=== PATIENT | female | born 1935 | race Caucasian/White ===

== ENCOUNTER 2016-09-15 15:40 | Emergency (ER) | payer MEDICARE, OTHER ==
[2016-09-15 15:58] VITALS: BP 162/74
[2016-09-15] MEDS ORDERED: hydrOXYzine HCl 25 MG Tab PO ONE (16:33)
--- NOTE | 2016-09-15 17:03 | EDM.PDOC ---
ED HPI GENERAL MEDICAL PROBLEM - General Chief Complaint: General Stated Complaint: DIZZY/SHAKY Time Seen by Provider: 09/15/16 15:51 Source of Information: Reports: Patient History Limitations: Reports: No Limitations - History of Present Illness INITIAL COMMENTS - FREE TEXT/NARRATIVE: 81-year-old female with a chief complaint of anxiety. She has a history of anxiety. She's been on ciprofloxacin for about 3 days for urinary infection and is feeling increasingly anxious. She states that she just feels very jittery and is having trouble sleeping. She wonders if it could be related to the medication. She states there is no other provoking factors. She still has some urgency and frequency but overall feels like she is improved. No dysuria or hematuria or abdominal pain or vomiting or fever. She is had about 3 days of antibiotics. States that she's had anxiety before, was given something in the emergency department which helped. She is not currently taking anything for anxiety. She doesn't know what medication she has at home. She hasn't seen her primary provider for these symptoms. - Related Data Allergies Allergy/AdvReac Type Severity Reaction Status Date / Time No Known Allergies Allergy Verified 09/15/16 15:55 Home Meds: Home Meds ALPRAZolam [Alprazolam] 0.25 mg PO BID PRN #6 tablet 11/29/15 [Rx] Enalapril Maleate 10 mg PO DAILY 01/08/16 [History] Levothyroxine [Synthroid] 50 mcg PO DAILY 01/08/16 [History] Simvastatin 40 mg PO DAILY 01/08/16 [History] Cephalexin 250 mg PO QID #20 capsule 09/15/16 [Rx] Ciprofloxacin [Ciprofloxacin HCl] 500 mg PO BID 09/15/16 [History] hydrOXYzine HCl [Atarax] 25 mg PO BEDTIME PRN #10 tablet 09/15/16 [Rx] Past Medical History HEENT History: Reports: Cataract Cardiovascular History: Reports: High Cholesterol, Hypertension Psychiatric History: Reports: Anxiety Endocrine/Metabolic History: Reports: Hypothyroidism - Past Surgical History Musculoskeletal Surgical History: Reports: Arthroscopic Knee, Shoulder Surgery Social & Family History - Tobacco Use Smoking Status *Q: Never Smoker Second Hand Smoke Exposure: No - Caffeine Use Caffeine Use: Reports: Coffee - Alcohol Use Days Per Week of Alcohol Use: 0 - Recreational Drug Use Recreational Drug Use: No ED ROS GENERAL - Review of Systems Review Of Systems: See Below Constitutional: Denies: Fever, Chills, Weakness HEENT: Reports: No Symptoms Respiratory: Denies: Shortness of Breath, Cough Cardiovascular: Denies: Chest Pain Endocrine: Reports: No Symptoms GI/Abdominal: Denies: Abdominal Pain, Nausea : Reports: Frequency. Denies: Dysuria Neurological: Reports: Dizziness Psychiatric: Reports: Anxiety ED EXAM, GENERAL - Physical Exam Exam: See Below Exam Limited By: No Limitations General Appearance: Alert, WD/WN, No Apparent Distress Eye Exam: Bilateral Eye: Normal Inspection Ears: Normal External Exam Nose: Normal Inspection Throat/Mouth: Normal Inspection, Normal Voice, No Airway Compromise Head: Atraumatic, Normocephalic Neck: Normal Inspection, Supple, Non-Tender, Full Range of Motion Respiratory/Chest: No Respiratory Distress, Lungs Clear, Normal Breath Sounds Cardiovascular: Regular Rate, Rhythm, No Murmur GI/Abdominal: Soft, Non-Tender, No Distention Back Exam: Normal Inspection. No: CVA Tenderness (L), CVA Tenderness (R) Extremities: Normal Inspection Neurological: Alert, Oriented, CN II-XII Intact, Normal Cognition, No Motor/ Sensory Deficits Psychiatric: Normal Affect, Normal Mood Skin Exam: Warm, Dry, Intact, Normal Color, No Rash Course - Vital Signs Last Recorded V/S: Last Vital Signs Temp 36.6 C 09/15/16 15:50 Pulse 90 09/15/16 15:50 Resp 18 09/15/16 15:50 BP 162/74 H 09/15/16 15:50 Pulse Ox 97 09/15/16 15:50 - Orders/Labs/Meds Labs: Laboratory Tests 09/15/16 Range/Units 17:00 Urine Color Yellow (Yellow) Urine Appearance Clear (Clear) Urine pH 6.5 (5.0-8.0) Ur Specific Dorsey > or = 1.030 (1.005-1.030) Urine Protein Negative (Negative) Urine Glucose (UA) Negative (Negative) Urine Ketones Trace H (Negative) Urine Occult Blood 2+ H (Negative) Urine Nitrite Negative (Negative) Urine Bilirubin Negative (Negative) Urine Urobilinogen 0.2 (0.2-1.0) Ur Leukocyte Esterase Negative (Negative) Urine RBC 10-20 H (0-5) /hpf Urine WBC 5-10 H (0-5) /hpf Ur Epithelial Cells 10-20 H (0-5) /hpf Urine Bacteria Rare (FEW) /hpf Urine Mucus Not seen (FEW) /hpf Meds: Medications Discontinued Medications Generic Name Dose Route Start Last Admin Trade Name Freq PRN Reason Stop Dose Admin Hydroxyzine HCl 25 mg 09/15/16 16:33 09/15/16 16:49 Atarax PO 09/15/16 16:34 25 mg ONETIME ONE Administration - Re-Assessments/Exams Free Text/Narrative Re-Assessment/Exam: 09/15/16 17:54 Feeling better after 1 tab hydroxyzine. Anxiety and agitation are listed side effects of cipro. Not clear if this exacerbation of anxiety is caused by this medication but given that it is a known possible side effect will change to cephalexin. Departure - Departure Time of Disposition: 17:54 Disposition: Home, Self-Care 01 Clinical Impression: Anxiety - Discharge Information Prescriptions: Cephalexin 250 mg PO QID #20 capsule hydrOXYzine HCl [Atarax] 25 mg PO BEDTIME PRN #10 tablet PRN Reason: anxiety or insomnia Referrals: Nitesh Menchaca Jr, MD [Primary Care Provider] - Forms: ED Department Discharge Additional Instructions: 1. Follow up with your primary doctor as soon as possible for further care 2. Take cephalexin (antibiotic). Stop taking cipro. Anxiety and agitation are possible side effects of cipro. 3. Return to the ED if you have severe anxiety symptoms or difficulty breathing or any other concerning symptoms
== END 2016-09-15 18:18 | disposition home or self-care (01) ==
LOC: JD.ED 15:40
DX: F41.9 Anxiety disorder, unspecified (principal); I10 Essential (primary) hypertension; E78.00 Pure hypercholesterolemia, unspecified; E03.9 Hypothyroidism, unspecified; Z98.890 Other specified postprocedural states; Z79.899 Other long term (current) drug therapy
CPT/HCPCS: 81001; 99284; A9270; 99283

== ENCOUNTER 2018-10-06 09:28 | Inpatient (IN) | payer MEDICARE, OTHER ==
--- NOTE | 2018-10-06 10:17 | EDM.PDOC ---
ED HPI GENERAL MEDICAL PROBLEM - General Chief Complaint: Upper Extremity Injury/Pain Stated Complaint: RT ARM AND KNEE INJURY Time Seen by Provider: 10/06/18 10:05 Source of Information: Reports: Patient History Limitations: Reports: No Limitations - History of Present Illness INITIAL COMMENTS - FREE TEXT/NARRATIVE: The patient presents with right elbow and left knee pain. She was at the [facility] and they put something new down on the floor and her shoes caught and she fell. She landed on her left knee, right elbow and chin. She had no LOC. She has no neck pain, chest pain, shortness of breath, abdominal pain, nausea or vomiting. She is right handed. She does have some ecchymosis to her right chin with now pain and ecchymosis to the left knee. She is on aspirin daily. Onset: Sudden Duration: Minutes: Location: Reports: Upper Extremity, Right (elbow), Lower Extremity, Left (knee) Quality: Reports: Sharp Severity: Moderate Improves with: Reports: Immobilization Worsens with: Reports: Movement Context: Reports: Trauma (fall) Right Elbow Pain Score (Numeric/FACES): 10 Left Knee Pain Score (Numeric/FACES): 8 - Related Data Allergies Allergy/AdvReac Type Severity Reaction Status Date / Time No Known Allergies Allergy Verified 09/15/16 15:55 Home Meds: Home Meds ALPRAZolam [Alprazolam] 0.25 mg PO BID PRN #6 tablet 11/29/15 [Rx] Enalapril Maleate 10 mg PO DAILY 01/08/16 [History] Levothyroxine [Synthroid] 50 mcg PO DAILY 01/08/16 [History] Simvastatin 40 mg PO DAILY 01/08/16 [History] Ciprofloxacin [Ciprofloxacin HCl] 500 mg PO BID 09/15/16 [History] cephALEXin [Cephalexin] 250 mg PO QID #20 capsule 09/15/16 [Rx] hydrOXYzine HCl [Atarax] 25 mg PO BEDTIME PRN #10 tablet 09/15/16 [Rx] Past Medical History HEENT History: Reports: Cataract Cardiovascular History: Reports: High Cholesterol, Hypertension Psychiatric History: Reports: Anxiety Endocrine/Metabolic History: Reports: Hypothyroidism - Past Surgical History Musculoskeletal Surgical History: Reports: Arthroscopic Knee, Shoulder Surgery Social & Family History - Tobacco Use Smoking Status *Q: Never Smoker - Caffeine Use Caffeine Use: Reports: Coffee - Recreational Drug Use Recreational Drug Use: No Review of Systems - Review of Systems Review Of Systems: See Below Constitutional: Reports: No Symptoms Eyes: Reports: No Symptoms Ears: Reports: No Symptoms Nose: Reports: No Symptoms Mouth/Throat: Reports: Other (Ecchymosis to the right chin) Respiratory: Reports: No Symptoms Cardiovascular: Reports: No Symptoms GI/Abdominal: Reports: No Symptoms Genitourinary: Reports: No Symptoms Musculoskeletal: Reports: Other (Right elbow and left knee pain) ED EXAM, GENERAL - Physical Exam Exam: See Below Exam Limited By: No Limitations General Appearance: Alert, No Apparent Distress Ears: Normal External Exam Nose: Normal Inspection Throat/Mouth: Normal Inspection Head: Other (Mild ecchymosis to the right chin with no pain upon palpation and the patient can bite down evenly.) Neck: Normal Inspection, Supple, Non-Tender Respiratory/Chest: No Respiratory Distress, Lungs Clear, Normal Breath Sounds Cardiovascular: Regular Rate, Rhythm, No Edema, No Murmur GI/Abdominal: Soft, Non-Tender, No Organomegaly, No Mass Back Exam: Normal Inspection Extremities: Other (Pain upon palpation to the right elbow with no edema noted. Good sensation and pulses distally. Left knee has some ecchymosis and mild edema to the patella. Good sensation and pulses distally.) ED TRAUMA EXTREMITY PROCEDURES - Splinting Right Upper Extremity Splint Site: Right elbow Pre-Procedure NV Status: Normal Post-Procedure NV Status: Normal Splint Material: Fiberglass Splint Design: Gutter, Sling Applied & Form Fitted By: Provider Provider Post-Splint Application NV Check: NV Status Normal, Good Position Complications: No Course - Vital Signs Last Recorded V/S: Last Vital Signs Temp 97.4 F 10/06/18 09:59 Pulse 103 H 10/06/18 09:59 Resp 16 10/06/18 09:59 BP 148/83 H 10/06/18 09:59 Pulse Ox 98 10/06/18 09:59 - Orders/Labs/Meds Orders: Active Orders 24 hr Category Date Time Status Durable Medical Equipment for Discharge [DME for Oth 10/06/18 11:31 Ordered Discharge] [COMM] Stat Durable Medical Equipment for Discharge [DME for Oth 10/06/18 12:19 Ordered Discharge] [COMM] Stat Meds: Medications Discontinued Medications Generic Name Dose Route Start Last Admin Trade Name Nakia PRN Reason Stop Dose Admin Ibuprofen 600 mg 10/06/18 13:55 Motrin PO 10/06/18 13:56 ONETIME ONE - Re-Assessments/Exams Free Text/Narrative Re-Assessment/Exam: 10/06/18 10:16 I have ordered an x-ray of her right elbow and left knee. 10/06/18 14:14 The x-ray of her knee shows degenerative change, joint effusion and patellar fracture. The x-ray of her right elbow shows findings suspicious for slightly impacted radial neck fracture. Joint effusion and other incidental findings. I put a knee immobilizer on her leg and a splint and sling on her arm. I was going to get her a wheel chair however her son, the patient and I are all concerned how she is going to function at home like this. I had Annabelle tonya social sciences lecturer come talk to her and she called [facility] and they had concerns about how she would do with them. I feel she may need to be admitted for observation and get PT. I called Dr Guardado and he agreed to the admission. Departure - Departure Time of Disposition: 14:25 Disposition: Refer to Observation Condition: Fair Clinical Impression: Fall Qualifiers: Encounter type: initial encounter Qualified Code(s): W19.XXXA - Unspecified fall, initial encounter Right radial head fracture Qualifiers: Encounter type: initial encounter Fracture type: closed Fracture alignment: nondisplaced Qualified Code(s): S52.124A - Nondisplaced fracture of head of right radius, initial encounter for closed fracture Left patella fracture Qualifiers: Encounter type: initial encounter Fracture type: closed Fracture morphology: other fracture Qualified Code(s): S82.092A - Other fracture of left patella, initial encounter for closed fracture - Discharge Information Referrals: Nitesh Menchaca Jr, MD [Primary Care Provider] - Forms: ED Department Discharge - My Orders Last 24 Hours: My Active Orders 10/06/18 11:31 Durable Medical Equipment for Discharge [DME for Discharge] [COMM] Stat 10/06/18 12:19 Durable Medical Equipment for Discharge [DME for Discharge] [COMM] Stat - Assessment/Plan Last 24 Hours: My Active Orders 10/06/18 11:31 Durable Medical Equipment for Discharge [DME for Discharge] [COMM] Stat 10/06/18 12:19 Durable Medical Equipment for Discharge [DME for Discharge] [COMM] Stat
--- NOTE | 2018-10-06 11:13 | CR ---
Right elbow: Three views of the right elbow were obtained. Comparison: No previous study. Slight degenerative change is noted within the elbow. Slightly impacted radial neck fracture is suspected. Osteopenia is present. Joint effusion is seen. Impression: 1. Findings suspicious for slightly impacted radial neck fracture. 2. Joint effusion and other incidental findings. Diagnostic code #3
--- NOTE | 2018-10-06 11:34 | CR ---
Left knee: Four views of the left knee were obtained. Comparison: No prior left knee exam. Mild to moderate medial joint space narrowing is seen. Osteophytes are noted off the medial and lateral joint compartments. Fracture is identified within the patella. Joint effusion is seen. Spur noted off the superior patella as well as spur at the insertion of the quadriceps tendon to the patella. Impression: 1. Degenerative change as noted above. 2. Joint effusion. 3. Patellar fracture. Diagnostic code #3
[2018-10-06] MEDS ORDERED: Ibuprofen 600 MG Tab PO ONE (13:55)
--- NOTE | 2018-10-06 15:11 | PCM.HP.2 ---
H&P History of Present Illness - General Date of Service: 10/06/18 Admit Problem/Dx: Admission Diagnosis/Problem Admission Diagnosis/Problem Elbow fracture Source of Information: Patient, Old Records, Provider, RN Notes Reviewed, Significant Other History Limitations: Reports: Physical Impairment - History of Present Illness Initial Comments - Free Text/Narative: This is an 83 yo pleasant elderly white female with past medical hx/o HTN, HLD, Hypothyroidism and Anxiety who comes in for evaluation right elbow and left knee pain [facility] She states she tripped on the floor lost her balance and fell forward. She landed on her left knee and right elbow. Her chin also hit the floor. She denies LOC and no loss of bladder or bowel control. No prodromal symptoms. She further denies any neurological symptoms. Her initial labs in ED were fairly unremarkable. Her knee x-ray report read as joint effusion and patellar fracture. Her elbow x-ray report read as suspicious for slightly impacted radial neck fracture with joint effusion. Patient lives alone and has no support at home. She is coming in primarily for left patellar and right distal radial fractures. Right Elbow Pain Score (Numeric/FACES): 10 Left Knee Pain Score (Numeric/FACES): 8 - Related Data Allergies/Adverse Reactions: Allergies Allergy/AdvReac Type Severity Reaction Status Date / Time No Known Allergies Allergy Verified 09/15/16 15:55 Home Medications: Home Meds Enalapril Maleate 10 mg PO DAILY 01/08/16 [History] Levothyroxine [Synthroid] 50 mcg PO DAILY 01/08/16 [History] Simvastatin 20 mg PO DAILY 01/08/16 [History] Aspirin 81 mg PO DAILY 10/06/18 [History] Baclofen 10 mg PO TID PRN 10/06/18 [History] Calcium Carb & Citrate/Vit D3 [Calcium + D3 ER Tablet] 1 tab PO DAILY 10/06/18 [ History] Chlorthalidone 12.5 mg PO DAILY 10/06/18 [History] Potassium Chloride [Klor-Con 10] 20 meq PO Q48H 10/06/18 [History] Past Medical History HEENT History: Reports: Cataract Cardiovascular History: Reports: High Cholesterol, Hypertension Psychiatric History: Reports: Anxiety Endocrine/Metabolic History: Reports: Hypothyroidism - Past Surgical History Musculoskeletal Surgical History: Reports: Arthroscopic Knee, Shoulder Surgery Social & Family History - Tobacco Use Smoking Status *Q: Never Smoker - Caffeine Use Caffeine Use: Reports: Coffee - Recreational Drug Use Recreational Drug Use: No H&P Review of Systems - Review of Systems: Review Of Systems: ROS reveals no pertinent complaints other than HPI. Exam - Exam Exam: See Below - Vital Signs Vital Signs: Last Vital Signs Temp 36.3 C 10/06/18 09:59 Pulse 103 H 10/06/18 09:59 Resp 16 10/06/18 09:59 BP 148/83 H 10/06/18 09:59 Pulse Ox 98 10/06/18 09:59 Weight: 64.41 kg - Exam General: Alert, Oriented, Cooperative, Mild Distress HEENT: Conjunctiva Clear, EOMI, Hearing Intact, Mucosa Moist & [place], Normal Nasal Septum, Posterior Pharynx Clear, Pupils Equal, Pupils Reactive, TMs Clear , Other (bruise on right chin) Neck: Supple, Trachea Midline Lungs: Clear to Auscultation, Normal Respiratory Effort Cardiovascular: Regular Rate, Regular Rhythm GI/Abdominal Exam: Normal Bowel Sounds, Soft, Non-Tender, No Organomegaly, No Distention, No Abnormal Bruit, No Mass, Guarding (Female) Exam: Deferred Rectal (Female) Exam: Deferred Back Exam: Normal Inspection, Decreased Range of Motion Extremities: Normal Inspection, Normal Range of Motion, Non-Tender, No Pedal Edema, Normal Capillary Refill, Other (sling around right shoulder) Peripheral Pulses: 2+: Posterior Tibial (L), Posterior Tibial (R), Dorsalis Pedis (L), Dorsalis Pedis (R) Skin: Warm, Dry, Intact Neuro Extensive - Mental Status: Oriented x3, Normal Cognition, Memory Intact Neuro Extensive - Motor, Sensory, Reflexes: CN II-XII Intact (limited due to pain with movement on right upper exremity but otherwise grosly intact), Abnormal Gait DTR: 2+: Achilles (L), Achilles (R) Psychiatric: Alert, Normal Affect, Normal Mood - Patient Data Result Diagrams: 10/07/18 04:28 10/07/18 15:02 Problem List Initiated/Reviewed/Updated: Yes Orders Last 24hrs: Active Orders 24 hr Category Date Time Status Patient Status [ADT] Routine ADT 10/06/18 14:26 Active Durable Medical Equipment for Discharge [DME for Oth 10/06/18 11:31 Ordered Discharge] [COMM] Stat Durable Medical Equipment for Discharge [DME for Oth 10/06/18 12:19 Ordered Discharge] [COMM] Stat Assessment/Plan Comment:: Assessment: Acute: Status Post Fall - 2/2 Mechanical fall - She tripped over the carpet and fell forward - PT/OT to assess and eval - Vit D level Right head Fractures - Splint and Sling for conservative treatment - Ortho consult for further eval - PRN pain medications Left Patellar Fracture - Knee immobilizer applied in ED - Ortho consult for further eval Chronic: HTN, HLD, Hypothyroidism and Anxiety Plan: Admit to [facility] Routine AM labs Regular diet Fall precautions Ortho consult: done in ED by Dr. Iglesias DVT/GI prophylaxis RT/OT/PT to asses and treat SW/CM for d/c planning Code status: full Additional orders as above - Mortality Measure Prognosis:: Good
[2018-10-06] MEDS ORDERED: Albuterol/Ipratropium 3.0-0.5 MG/3 ML Neb Soln NEB PRN (15:12)
[2018-10-06] MEDS ORDERED: Polyethylene Glycol 3350 Powder 17 GM Packet PO PRN (15:12)
[2018-10-06] MEDS ORDERED: LORazepam 2 MG/ML SDV IV PRN (15:12)
[2018-10-06] MEDS ORDERED: HYDROmorphone 0.5 MG/0.5 ML Syringe IVPUSH PRN (15:12)
[2018-10-06] MEDS ORDERED: Promethazine 6.25 MG in Sodium Chloride 0.9% 50 ML IV PRN (15:12)
[2018-10-06] MEDS ORDERED: Bisacodyl 5 MG Tab PO PRN (15:12)
[2018-10-06] MEDS ORDERED: Docusate Sodium 100 MG Cap PO PRN (15:12)
[2018-10-06] MEDS ORDERED: Ondansetron 4 MG/2 ML SDV IV PRN (15:12)
[2018-10-06] MEDS ORDERED: Baclofen 10 MG Tab PO PRN (16:00)
[2018-10-06] MEDS ORDERED: POTASSIUM CHLORIDE 20 MEQ PO SCH (18:00)
[2018-10-06] MEDS: Acetaminophen/HYDROcodone 325-5 MG Tab PO PRN (22:28)
[2018-10-07] MEDS: LEVOTHYROXINE 50 MCG PO SCH (06:20)
[2018-10-07] MEDS ORDERED: ENALAPRIL 10 MG PO SCH (09:00)
[2018-10-07] MEDS ORDERED: CALCIUM CARB PO SCH (09:00)
[2018-10-07] MEDS ORDERED: Non-Formulary Medication 1 Each (Potassium Chloride [Klor-Con 10] 10 MEQ) PO SCH (09:00)
[2018-10-07] MEDS ORDERED: SIMVASTATIN 40 MG PO SCH (09:00)
[2018-10-07] MEDS ORDERED: VIT D3 PO SCH (09:00)
[2018-10-07] MEDS ORDERED: POTASSIUM CHLORIDE 20 MEQ PO SCH (09:00)
[2018-10-07] MEDS ORDERED: CITRATE PO SCH (09:00)
[2018-10-07] MEDS: Aspirin 81 MG Tab.EC PO SCH (09:34)
[2018-10-07] MEDS: CHLORTHALIDONE 25 MG PO SCH (09:37)
[2018-10-07] MEDS: Ibuprofen 400 MG Tab PO PRN (09:39)
[2018-10-07] MEDS ORDERED: Magnesium Sulfate/Water 2 GM in Premix Bag 1 BAG IV ONE (11:30)
[2018-10-07] MEDS ORDERED: Potassium Chloride 20 MEQ Tab.ER PO ONE (11:30)
--- NOTE | 2018-10-07 11:49 | PCM.PN ---
- General Info Date of Service: 10/07/18 Admission Dx/Problem (Free Text): Admission Diagnosis/Problem Admission Diagnosis/Problem Elbow fracture Subjective Update: Follow up Functional Status: Reports: Pain Controlled, Tolerating Diet, Urinating. Denies : New Symptoms Pain Score: 4 - Review of Systems General: Denies: Fever, Weakness, Fatigue, Malaise HEENT: Reports: No Symptoms Pulmonary: Denies: Shortness of Breath Cardiovascular: Denies: Chest Pain, Dyspnea on Exertion, Orthopnea, PND, Lightheadedness Gastrointestinal: Reports: No Symptoms Genitourinary: Reports: No Symptoms Musculoskeletal: Reports: Shoulder Pain, Other (knee pain) Skin: Reports: Bruising Neurological: Reports: Difficulty Walking, Weakness, Gait Disturbance. Denies: Confusion, Paresthesia, Tingling, Trouble Speaking Psychiatric: Denies: Depression, Anxiety, Agitation, Cravings, Hallucinations, Suicidal Ideation Systems Review Comment:: No overnight or acute issues. She rested fairly well last night. She has no acute issues. Her knee pain is 4 and her elbow is 6/10 on pain scale. Her Na, K and levels were slightly low. - Patient Data Vitals - Most Recent: Last Vital Signs Temp 36.4 C 10/07/18 04:42 Pulse 79 10/07/18 04:43 Resp 16 10/07/18 04:42 BP 146/71 H 10/07/18 09:38 Pulse Ox 96 10/07/18 04:43 Weight - Most Recent: 64.41 kg I&O - Last 24 Hours: Intake & Output 10/06/18 10/07/18 10/07/18 22:59 06:59 14:59 Intake Total 240 600 Output Total 700 Balance 240 -100 Lab Results Last 24 Hours: Laboratory Results - last 24 hr 10/07/18 10/07/18 Range/Units 04:28 04:28 WBC 7.17 (3.98-10.04) K/mm3 RBC 3.94 L (3.98-5.22) M/mm3 Hgb 11.9 (11.2-15.7) gm/L Hct 34.9 (34.1-44.9) % MCV 88.6 D (79.4-94.8) fl MCH 30.2 (25.6-32.2) pg MCHC 34.1 (32.2-35.5) g/dl RDW Std Deviation 41.9 (36.4-46.3) fL Plt Count 237 D (182-369) K/mm3 MPV 8.9 L (9.4-12.3) fl Neut % (Auto) 70.6 (34.0-71.1) % Lymph % (Auto) 17.3 L (19.3-51.7) % [place] % (Auto) 10.9 (4.7-12.5) % Eos % (Auto) 0.8 (0.7-5.8) Baso % (Auto) 0.1 (0.1-1.2) % Neut # (Auto) 5.06 (1.56-6.13) K/mm3 Lymph # (Auto) 1.24 (1.18-3.74) K/mm3 [place] # (Auto) 0.78 H (0.24-0.36) K/mm3 Eos # (Auto) 0.06 (0.04-0.36) K/mm3 Baso # (Auto) 0.01 (0.01-0.08) K/mm3 Sodium 126 L D (136-145) mEq/L Potassium 2.9 L (3.5-5.1) mEq/L Chloride 90 L D (98-107) mEq/L Carbon Dioxide 29 (21-32) mEq/L Anion Gap 9.9 (5-15) BUN 14 (7-18) mg/dL Creatinine 0.7 (0.55-1.02) mg/dL Est Cr Clr Drug Dosing 44.51 mL/min Estimated GFR (MDRD) > 60 (>60) mL/min BUN/Creatinine Ratio 20.0 H (14-18) Glucose 98 (83-115) mg/dL Calcium 8.8 (8.5-10.1) mg/dL Magnesium 1.7 L (1.8-2.4) mg/dl Med Orders - Current: Current Medications Hydrocodone Bitart/Acetaminophen ([place] 325-5 Mg) 1 tab PO Q4H PRN PRN Reason: Pain (moderate 4-6) Last Admin: 10/06/18 22:28 Dose: 1 tab Albuterol/Ipratropium (Duoneb 3.0-0.5 Mg/3 Ml) 3 ml NEB Q4H PRN PRN Reason: Shortness Of Breath/wheezing Aspirin (Halfprin) 81 mg PO DAILY [facility] Last Admin: 10/07/18 09:34 Dose: 81 mg Baclofen (Lioresal) 10 mg PO TID PRN PRN Reason: Pain Bisacodyl (Dulcolax) 5 mg PO DAILY PRN PRN Reason: Constipation Docusate Sodium (Colace) 100 mg PO BID PRN PRN Reason: Constipation Enalapril Maleate (Vasotec) 10 mg PO DAILY [facility] Last Admin: 10/07/18 09:38 Dose: 10 mg Hydromorphone HCl (Dilaudid) 0.25 mg IVPUSH Q2H PRN PRN Reason: Pain (severe 7-10) Promethazine HCl 6.25 mg/ (Sodium Chloride) 50.25 mls @ 100 mls/hr IV Q6H PRN PRN Reason: Nausea/Vomiting Magnesium Sulfate 2 gm/ Premix 50 mls @ 25 mls/hr IV ONETIME ONE Stop: 10/07/18 13:29 Ibuprofen (Motrin) 400 mg PO Q6H PRN PRN Reason: Pain (mild 1-3) Last Admin: 10/07/18 09:39 Dose: 400 mg Levothyroxine Sodium (Synthroid) 50 mcg PO DAILY@0700 [facility] Last Admin: 10/07/18 06:20 Dose: 50 mcg Lorazepam (Ativan) 0.25 mg IV Q6H PRN PRN Reason: Anxiety Ondansetron HCl (Zofran) 4 mg IV Q6H PRN PRN Reason: Nausea/Vomiting Calcium Carb & Citrate/Vit D3 Tab # Ptom# 0 each PO DAILY [facility] Last Admin: 10/07/18 09:35 Dose: 1 each Chlorthalidone 25 Mg (Tab #Ptom#) 0 each PO DAILY [facility] Last Admin: 10/07/18 09:37 Dose: 1 each Polyethylene Glycol (Miralax) 17 gm PO DAILY PRN PRN Reason: Constipation Potassium Chloride (Klor-Con M20) 20 meq PO Q48H [facility] Last Admin: 10/07/18 09:34 Dose: 20 meq Senna/Docusate Sodium (Senna Plus) 1 tab PO BID PRN PRN Reason: Constipation Simvastatin (Zocor) 20 mg PO DAILY [facility] Last Admin: 10/07/18 09:38 Dose: 20 mg Discontinued Medications Ibuprofen (Motrin) 600 mg PO ONETIME ONE Stop: 10/06/18 13:56 Last Admin: 10/06/18 14:17 Dose: 600 mg Non-Formulary Medication (Potassium Chloride [Klor-Con 10]) 10 meq PO DAILY [facility] Potassium Chloride (Klor-Con M20) 20 meq PO Q48H [facility] Last Admin: 10/06/18 20:05 Dose: Not Given Potassium Chloride (Klor-Con M20) 60 meq PO ONETIME ONE Stop: 10/07/18 11:31 - Exam General: Alert, Oriented, Cooperative HEENT: Pupils Equal, Pupils Reactive, EOMI, Mucous Membr. Moist/[place] Neck: Supple Lungs: Clear to Auscultation, Normal Respiratory Effort Cardiovascular: Regular Rate, Regular Rhythm GI/Abdominal Exam: Normal Bowel Sounds, Soft, Non-Tender, No Organomegaly, No Distention, No Abnormal Bruit, No Mass (Female) Exam: Deferred Back Exam: Normal Inspection, Decreased Range of Motion Extremities: Normal Inspection, Non-Tender, No Pedal Edema, Normal Capillary Refill, Limited Range of Motion Peripheral Pulses: 2+: Posterior Tibial (R), Dorsalis Pedis (L), Dorsalis Pedis (R) Skin: Warm, Dry, Intact, Ecchymosis Neurological: No New Focal Deficit (limited due to pain with movement). No: Normal Gait Psy/Mental Status: Alert, Normal Affect, Normal Mood - Problem List Review Problem List Initiated/Reviewed/Updated: Yes - My Orders Last 24 Hours: My Active Orders 10/06/18 15:12 Height and Weight [RC] 04 Intake and Output [RC] 04,16 Oxygen Therapy [RC] PRN Up With Assistance [RC] ASDIRECTED Up ad Yohana [RC] ASDIRECTED VTE/DVT Education [RC] PER UNIT ROUTINE Vital Signs [RC] Q4HR Consult to Case Management/Director Of Annual Giving [CONS] Routine Consult to Spiritual Care [CONS] Routine OT Evaluation and Treatment [CONS] Routine PT Evaluation and Treatment [CONS] Routine Acetaminophen/HYDROcodone [[place] 325-5 MG] 1 tab PO Q4H PRN Albuterol/Ipratropium [DuoNeb 3.0-0.5 MG/3 ML] 3 ml NEB Q4H PRN Bisacodyl [Dulcolax] 5 mg PO DAILY PRN Docusate Sodium [Colace] 100 mg PO BID PRN Docusate Sodium/Sennosides [Senna Plus] 1 tab PO BID PRN HYDROmorphone [Dilaudid] 0.25 mg IVPUSH Q2H PRN LORazepam [Ativan] 0.25 mg IV Q6H PRN Ondansetron [Zofran] 4 mg IV Q6H PRN Polyethylene Glycol 3350 [MiraLAX] 17 gm PO DAILY PRN Promethazine [Phenergan] 6.25 mg Sodium Chloride 0.9% [Normal Saline] 50 ml IV Q6H 10/06/18 15:13 Antiembolic Devices [RC] BID Sequential Compression Device [OM.PC] Per Unit Routine 10/06/18 15:14 RT Aerosol Therapy [RC] ASDIRECTED 10/06/18 15:22 Resuscitation Status Routine 10/06/18 15:59 Notify Provider Consults [RC] ASDIRECTED Consult to Physician [CONS] Routine 10/06/18 16:00 Baclofen [Lioresal] 10 mg PO TID PRN 10/06/18 21:00 Ibuprofen [Motrin] 400 mg PO Q6H PRN 10/06/18 Dinner Regular Diet [DIET] 10/07/18 07:00 Levothyroxine [Synthroid] 50 mcg PO DAILY@0700 10/07/18 09:00 Aspirin [Halfprin] 81 mg PO DAILY Enalapril [Vasotec] 10 mg PO DAILY Patient's Own Medication [Ptom] 0 each PO DAILY Patient's Own Medication [Ptom] 0 each PO DAILY Potassium Chloride [Klor-Con M20] 20 meq PO Q48H Simvastatin [Zocor] 20 mg PO DAILY 10/07/18 11:30 Magnesium Sulfate/Water [Magnesium Sulfate in Water Premix] 2 gm Premix Bag 1 bag IV ONETIME 10/08/18 05:11 BASIC METABOLIC PANEL,BMP [CHEM] AM CBC WITH AUTO DIFF [HEME] AM MAGNESIUM [CHEM] AM 10/09/18 05:11 BASIC METABOLIC PANEL,BMP [CHEM] AM CBC WITH AUTO DIFF [HEME] AM MAGNESIUM [CHEM] AM 10/10/18 05:11 BASIC METABOLIC PANEL,BMP [CHEM] AM CBC WITH AUTO DIFF [HEME] AM MAGNESIUM [CHEM] AM 10/11/18 05:11 BASIC METABOLIC PANEL,BMP [CHEM] AM CBC WITH AUTO DIFF [HEME] AM MAGNESIUM [CHEM] AM - Plan Plan:: Assessment: Acute: Status Post Fall - 2/2 Mechanical fall - She tripped over the carpet and fell forward - PT/OT to assess and eval - Vit D level Right head Fractures - Splint and Sling for conservative treatment - Dr. Hull saw her this morning - PRN pain medications Left Patellar Fracture - Knee immobilizer applied in ED - Ortho consult for further eval Electrolytes Abnormality * Hyponatremia - Na of 126--> 122 - 2/ thiazide - Thermotabs po TID * Hypokalemia - K of 2.9 - She is chronically low - She has daily K supplement - Add 60 mEq of KCl po x1 * Hypomagnesemia - Mg of 1.7 - Replete and monitor Chronic: HTN, HLD, Hypothyroidism and Anxiety Plan: She is otherwise clinically stable Change to inpatient if she meets criteria; CM to review patient's case Routine AM labs Regular diet Fall precautions Educated patient about pain control and management DVT/GI prophylaxis Continue OT/PT to asses and treat SW/CM for d/c planning Recommend SNF/Rehab placement Code status: full Additional orders as above LOS anticipate > 96hrs pending SNF/Rehab Placement
[2018-10-07] MEDS: Acetaminophen/HYDROcodone 325-5 MG Tab PO PRN (11:52)
[2018-10-07] MEDS ORDERED: Magnesium Oxide 400 MG Tab PO ONE (13:03)
[2018-10-08] MEDS ORDERED: Potassium Chloride 20 MEQ Tab.ER PO ONE ×2 (07:28→22:32)
[2018-10-08] MEDS: LEVOTHYROXINE 50 MCG PO SCH (07:53)
--- NOTE | 2018-10-08 09:23 | PCM.PN ---
- General Info Date of Service: 10/08/18 Admission Dx/Problem (Free Text): Admission Diagnosis/Problem Admission Diagnosis/Problem Elbow fracture Subjective Update: Follow up Functional Status: Reports: Pain Controlled, Tolerating Diet, Ambulating, Urinating. Denies: New Symptoms Pain Score: 3 - Review of Systems General: Denies: Fever, Weakness, Fatigue, Malaise, Chills HEENT: Reports: No Symptoms Pulmonary: Denies: Shortness of Breath, Pleuritic Chest Pain Cardiovascular: Denies: Chest Pain, Dyspnea on Exertion, Orthopnea, Lightheadedness Gastrointestinal: Denies: Abdominal Pain, Nausea, Vomiting Genitourinary: Reports: No Symptoms Musculoskeletal: Reports: Other Skin: Reports: Bruising Neurological: Reports: Difficulty Walking, Weakness, Gait Disturbance. Denies: Confusion Psychiatric: Denies: Depression, Anxiety, Agitation, Cravings, Suicidal Ideation Systems Review Comment:: Had an uneventful night, pain is controlled and no acute or new issues. She has not had a bowel movement. Her electrolytes are much better. - Patient Data Vitals - Most Recent: Last Vital Signs Temp 36.7 C 10/08/18 08:06 Pulse 62 10/08/18 08:06 Resp 16 10/08/18 08:06 BP 148/62 H 10/08/18 08:06 Pulse Ox 95 10/08/18 08:06 Weight - Most Recent: 65.136 kg I&O - Last 24 Hours: Intake & Output 10/07/18 10/08/18 10/08/18 22:59 06:59 14:59 Intake Total 803 600 Output Total 600 Balance 203 600 Lab Results Last 24 Hours: Laboratory Results - last 24 hr 10/07/18 10/08/18 10/08/18 Range/Units 15:02 04:47 04:47 WBC 6.26 (3.98-10.04) K/mm3 RBC 3.84 L (3.98-5.22) M/mm3 Hgb 11.6 (11.2-15.7) gm/L Hct 34.0 L (34.1-44.9) % MCV 88.5 (79.4-94.8) fl MCH 30.2 (25.6-32.2) pg MCHC 34.1 (32.2-35.5) g/dl RDW Std Deviation 41.7 (36.4-46.3) fL Plt Count 231 (182-369) K/mm3 MPV 8.8 L (9.4-12.3) fl Neut % (Auto) 71.6 H (34.0-71.1) % Lymph % (Auto) 14.7 L (19.3-51.7) % [place] % (Auto) 12.0 (4.7-12.5) % Eos % (Auto) 1.3 (0.7-5.8) Baso % (Auto) 0.2 (0.1-1.2) % Neut # (Auto) 4.49 (1.56-6.13) K/mm3 Lymph # (Auto) 0.92 L (1.18-3.74) K/mm3 [place] # (Auto) 0.75 H (0.24-0.36) K/mm3 Eos # (Auto) 0.08 (0.04-0.36) K/mm3 Baso # (Auto) 0.01 (0.01-0.08) K/mm3 Sodium 122 L 127 L (136-145) mEq/L Potassium 3.5 3.3 L (3.5-5.1) mEq/L Chloride 87 L 92 L (98-107) mEq/L Carbon Dioxide 27 34 H (21-32) mEq/L Anion Gap 11.5 4.3 L (5-15) BUN 14 10 (7-18) mg/dL Creatinine 0.8 0.7 (0.55-1.02) mg/dL Est Cr Clr Drug Dosing 38.94 44.51 mL/min Estimated GFR (MDRD) > 60 > 60 (>60) mL/min BUN/Creatinine Ratio 17.5 14.3 (14-18) Glucose 144 H 95 (83-115) mg/dL Calcium 8.8 8.4 L (8.5-10.1) mg/dL Magnesium 2.1 1.9 (1.8-2.4) mg/dl Med Orders - Current: Current Medications Hydrocodone Bitart/Acetaminophen ([place] 325-5 Mg) 1 tab PO Q4H PRN PRN Reason: Pain (moderate 4-6) Last Admin: 10/07/18 11:52 Dose: 1 tab Albuterol/Ipratropium (Duoneb 3.0-0.5 Mg/3 Ml) 3 ml NEB Q4H PRN PRN Reason: Shortness Of Breath/wheezing Aspirin (Halfprin) 81 mg PO DAILY [facility] Last Admin: 10/07/18 09:34 Dose: 81 mg Baclofen (Lioresal) 10 mg PO TID PRN PRN Reason: Pain Bisacodyl (Dulcolax) 5 mg PO DAILY PRN PRN Reason: Constipation Calcium Carbonate (Calcium Carbonate/Vitamin D 600 Mg-200 Unit) 1 tab PO DAILY [facility] Docusate Sodium (Colace) 100 mg PO BID PRN PRN Reason: Constipation Enalapril Maleate (Vasotec) 10 mg PO DAILY [facility] Hydromorphone HCl (Dilaudid) 0.25 mg IVPUSH Q2H PRN PRN Reason: Pain (severe 7-10) Promethazine HCl 6.25 mg/ (Sodium Chloride) 50.25 mls @ 100 mls/hr IV Q6H PRN PRN Reason: Nausea/Vomiting Ibuprofen (Motrin) 400 mg PO Q6H PRN PRN Reason: Pain (mild 1-3) Last Admin: 10/07/18 09:39 Dose: 400 mg Levothyroxine Sodium (Synthroid) 50 mcg PO DAILY@0700 [facility] Lorazepam (Ativan) 0.25 mg IV Q6H PRN PRN Reason: Anxiety Ondansetron HCl (Zofran) 4 mg IV Q6H PRN PRN Reason: Nausea/Vomiting Last Admin: 10/07/18 13:24 Dose: 4 mg Chlorthalidone 25 Mg (Tab #Ptom#) 0 each PO DAILY [facility] Last Admin: 10/07/18 09:37 Dose: 1 each Polyethylene Glycol (Miralax) 17 gm PO DAILY PRN PRN Reason: Constipation Potassium Chloride (Klor-Con M20) 20 meq PO Q48H [facility] Senna/Docusate Sodium (Senna Plus) 1 tab PO BID PRN PRN Reason: Constipation Simvastatin (Zocor) 20 mg PO DAILY [facility] Discontinued Medications Enalapril Maleate (Vasotec) 10 mg PO DAILY [facility] Last Admin: 10/07/18 09:38 Dose: 10 mg Magnesium Sulfate 2 gm/ Premix 50 mls @ 25 mls/hr IV ONETIME ONE Stop: 10/07/18 13:29 Last Admin: 10/07/18 11:54 Dose: 25 mls/hr Ibuprofen (Motrin) 600 mg PO ONETIME ONE Stop: 10/06/18 13:56 Last Admin: 10/06/18 14:17 Dose: 600 mg Levothyroxine Sodium (Synthroid) 50 mcg PO DAILY@0700 [facility] Last Admin: 10/08/18 07:53 Dose: 50 mcg Magnesium Oxide (Magnesium Oxide) 800 mg PO ONETIME ONE Stop: 10/07/18 13:04 Last Admin: 10/07/18 13:23 Dose: 800 mg Non-Formulary Medication (Potassium Chloride [Klor-Con 10]) 10 meq PO DAILY [facility] Calcium Carb & Citrate/Vit D3 Tab # Ptom# 0 each PO DAILY [facility] Last Admin: 10/07/18 09:35 Dose: 1 each Potassium Chloride (Klor-Con M20) 20 meq PO Q48H [facility] Last Admin: 10/06/18 20:05 Dose: Not Given Potassium Chloride (Klor-Con M20) 20 meq PO Q48H [facility] Last Admin: 10/07/18 09:34 Dose: 20 meq Potassium Chloride (Klor-Con M20) 60 meq PO ONETIME ONE Stop: 10/07/18 11:31 Last Admin: 10/07/18 11:52 Dose: 60 meq Potassium Chloride (Klor-Con M20) 40 meq PO ONETIME ONE Stop: 10/08/18 07:29 Last Admin: 10/08/18 07:53 Dose: 40 meq Simvastatin (Zocor) 20 mg PO DAILY [facility] Last Admin: 10/07/18 09:38 Dose: 20 mg - Exam General: Alert, Oriented, Cooperative, No Acute Distress HEENT: Pupils Equal, Pupils Reactive, EOMI, Mucous Membr. Moist/[place] Neck: Supple Lungs: Clear to Auscultation, Normal Respiratory Effort Cardiovascular: Regular Rate, Regular Rhythm GI/Abdominal Exam: Normal Bowel Sounds, Soft, Non-Tender, No Organomegaly, No Distention, No Abnormal Bruit, No Mass, Pelvis Stable (Female) Exam: Deferred Back Exam: Normal Inspection, Decreased Range of Motion Extremities: Normal Inspection, Normal Range of Motion, Non-Tender, No Pedal Edema, Normal Capillary Refill Peripheral Pulses: 2+: Posterior Tibial (L), Posterior Tibial (R), Dorsalis Pedis (L), Dorsalis Pedis (R) Skin: Warm, Dry, Intact Neurological: No New Focal Deficit. No: Normal Gait Psy/Mental Status: Alert, Normal Affect, Normal Mood - Problem List Review Problem List Initiated/Reviewed/Updated: Yes - My Orders Last 24 Hours: My Active Orders 10/07/18 09:00 Aspirin [Halfprin] 81 mg PO DAILY Patient's Own Medication [Ptom] 0 each PO DAILY 10/07/18 17:39 Patient Status [ADT] Routine 10/07/18 19:10 IS (RT) [RT Incentive Spirometry] [RC] Q2HWA 10/08/18 09:00 Calcium Carbonate/Vitamin D3 [Calcium Carbonate/Vitamin D 600 MG-200 Unit] 1 tab PO DAILY Enalapril [Vasotec] 10 mg PO DAILY Simvastatin [Zocor] 20 mg PO DAILY 10/09/18 05:11 BASIC METABOLIC PANEL,BMP [CHEM] AM CBC WITH AUTO DIFF [HEME] AM MAGNESIUM [CHEM] AM 10/09/18 07:00 Levothyroxine [Synthroid] 50 mcg PO DAILY@0700 10/09/18 09:00 Potassium Chloride [Klor-Con M20] 20 meq PO Q48H 10/10/18 05:11 BASIC METABOLIC PANEL,BMP [CHEM] AM CBC WITH AUTO DIFF [HEME] AM MAGNESIUM [CHEM] AM 10/11/18 05:11 BASIC METABOLIC PANEL,BMP [CHEM] AM CBC WITH AUTO DIFF [HEME] AM MAGNESIUM [CHEM] AM - Plan Plan:: Assessment: Acute: Status Post Fall - 2/2 Mechanical fall - She tripped over the carpet and fell forward - PT/OT to assess and eval - Vit D level Right Radial Head Fracture - Splint and Sling for conservative treatment - Dr. Hull saw her this morning - PRN pain medications Left Patellar Fracture - Knee immobilizer applied in ED - Ortho consult for further eval Electrolytes Abnormality * Hyponatremia - Na of 126-->122-->127 - 2/2 thiazide - Thermotabs po TID * Hypokalemia - K of 2.9-->3.3 - She is chronically low - She has daily K supplement - Replete and monitor * Hypomagnesemia - Mg of 1.7-->1.9 - Replete and monitor Chronic: HTN, HLD, Hypothyroidism and Anxiety Plan: She remains clinically stable Routine AM labs Fall precautions Educated patient about pain control and management DVT/GI prophylaxis Continue OT/PT to asses and treat SW/CM for d/c planning Recommend SNF/Rehab placement Code status: full Additional orders as above LOS anticipate > 96hrs pending SNF/Rehab Placement
[2018-10-08] MEDS ORDERED: Bisacodyl 10 MG Supp RECTAL PRN (09:26)
[2018-10-08] MEDS: Aspirin 81 MG Tab.EC PO SCH (09:50)
[2018-10-08] MEDS: Simvastatin 20 MG Tab PO SCH (09:50)
[2018-10-08] MEDS: Calcium Carbonate/Vitamin D3 600 MG-200 Units Tab PO SCH (09:51)
[2018-10-08] MEDS: CHLORTHALIDONE 25 MG PO SCH (09:51)
[2018-10-08] MEDS: Ibuprofen 400 MG Tab PO PRN (15:46)
[2018-10-08] MEDS ORDERED: Magnesium Sulfate/Water 2 GM in Premix Bag 1 BAG IV ONE (22:31)
[2018-10-09] MEDS: Levothyroxine 50 MCG Tab PO SCH (06:22)
--- NOTE | 2018-10-09 07:13 | PCM.PN ---
- General Info Date of Service: 10/09/18 Admission Dx/Problem (Free Text): Admission Diagnosis/Problem Admission Diagnosis/Problem Elbow fracture Subjective Update: Follow up Functional Status: Reports: Pain Controlled, Tolerating Diet, Urinating. Denies : New Symptoms Pain Score: 3 - Review of Systems General: Denies: Fever, Chills HEENT: Reports: No Symptoms Pulmonary: Denies: Shortness of Breath Cardiovascular: Denies: Chest Pain, Dyspnea on Exertion, Lightheadedness Gastrointestinal: Denies: Abdominal Pain, Nausea, Vomiting Genitourinary: Reports: No Symptoms Musculoskeletal: Reports: No Symptoms Skin: Reports: No Symptoms Neurological: Reports: Difficulty Walking, Weakness, Gait Disturbance. Denies: Confusion Psychiatric: Denies: Depression, Anxiety, Agitation, Hallucinations Systems Review Comment:: No overnight or acute issues. She is doing relatively well. Her pain is controlled. - Patient Data Vitals - Most Recent: Last Vital Signs Temp 36.6 C 10/09/18 04:13 Pulse 67 10/09/18 04:13 Resp 18 10/09/18 04:13 BP 134/72 10/09/18 04:13 Pulse Ox 97 10/09/18 04:13 Weight - Most Recent: 65.317 kg I&O - Last 24 Hours: Intake & Output 10/08/18 10/09/18 10/09/18 22:59 06:59 14:59 Intake Total 940 700 Balance 940 700 Lab Results Last 24 Hours: Laboratory Results - last 24 hr 10/09/18 10/09/18 Range/Units 04:54 04:54 WBC 8.07 (3.98-10.04) K/mm3 RBC 4.12 (3.98-5.22) M/mm3 Hgb 12.5 (11.2-15.7) gm/L Hct 36.1 (34.1-44.9) % MCV 87.6 (79.4-94.8) fl MCH 30.3 (25.6-32.2) pg MCHC 34.6 (32.2-35.5) g/dl RDW Std Deviation 41.6 (36.4-46.3) fL Plt Count 262 (182-369) K/mm3 MPV 8.8 L (9.4-12.3) fl Neut % (Auto) 61.8 (34.0-71.1) % Lymph % (Auto) 26.1 (19.3-51.7) % [place] % (Auto) 9.8 (4.7-12.5) % Eos % (Auto) 1.7 (0.7-5.8) Baso % (Auto) 0.2 (0.1-1.2) % Neut # (Auto) 4.98 (1.56-6.13) K/mm3 Lymph # (Auto) 2.11 (1.18-3.74) K/mm3 [place] # (Auto) 0.79 H (0.24-0.36) K/mm3 Eos # (Auto) 0.14 (0.04-0.36) K/mm3 Baso # (Auto) 0.02 (0.01-0.08) K/mm3 Sodium 123 L (136-145) mEq/L Potassium 4.1 (3.5-5.1) mEq/L Chloride 88 L (98-107) mEq/L Carbon Dioxide 25 (21-32) mEq/L Anion Gap 14.1 (5-15) BUN 13 (7-18) mg/dL Creatinine 0.8 (0.55-1.02) mg/dL Est Cr Clr Drug Dosing 38.94 mL/min Estimated GFR (MDRD) > 60 (>60) mL/min BUN/Creatinine Ratio 16.3 (14-18) Glucose 108 (83-115) mg/dL Calcium 9.2 (8.5-10.1) mg/dL Magnesium 2.0 (1.8-2.4) mg/dl Med Orders - Current: Current Medications Hydrocodone Bitart/Acetaminophen ([place] 325-5 Mg) 1 tab PO Q4H PRN PRN Reason: Pain (moderate 4-6) Last Admin: 10/07/18 11:52 Dose: 1 tab Albuterol/Ipratropium (Duoneb 3.0-0.5 Mg/3 Ml) 3 ml NEB Q4H PRN PRN Reason: Shortness Of Breath/wheezing Aspirin (Halfprin) 81 mg PO DAILY [facility] Last Admin: 10/08/18 09:50 Dose: 81 mg Baclofen (Lioresal) 10 mg PO TID PRN PRN Reason: Pain Bisacodyl (Dulcolax) 5 mg PO DAILY PRN PRN Reason: Constipation Bisacodyl (Dulcolax) 10 mg RECTAL BID PRN PRN Reason: Constipation Calcium Carbonate (Calcium Carbonate/Vitamin D 600 Mg-200 Unit) 1 tab PO DAILY [facility] Last Admin: 10/08/18 09:51 Dose: 1 tab Docusate Sodium (Colace) 100 mg PO BID PRN PRN Reason: Constipation Enalapril Maleate (Vasotec) 10 mg PO DAILY [facility] Last Admin: 10/08/18 09:53 Dose: 10 mg Hydromorphone HCl (Dilaudid) 0.25 mg IVPUSH Q2H PRN PRN Reason: Pain (severe 7-10) Promethazine HCl 6.25 mg/ (Sodium Chloride) 50.25 mls @ 100 mls/hr IV Q6H PRN PRN Reason: Nausea/Vomiting Ibuprofen (Motrin) 400 mg PO Q6H PRN PRN Reason: Pain (mild 1-3) Last Admin: 10/08/18 15:46 Dose: 400 mg Levothyroxine Sodium (Synthroid) 50 mcg PO DAILY@0700 [facility] Last Admin: 10/09/18 06:22 Dose: 50 mcg Lorazepam (Ativan) 0.25 mg IV Q6H PRN PRN Reason: Anxiety Ondansetron HCl (Zofran) 4 mg IV Q6H PRN PRN Reason: Nausea/Vomiting Last Admin: 10/07/18 13:24 Dose: 4 mg Chlorthalidone 25 Mg (Tab #Ptom#) 0 each PO DAILY [facility] Last Admin: 10/08/18 09:51 Dose: 12.5 each Polyethylene Glycol (Miralax) 17 gm PO DAILY PRN PRN Reason: Constipation Potassium Chloride (Klor-Con M20) 20 meq PO Q48H [facility] Senna/Docusate Sodium (Senna Plus) 1 tab PO BID PRN PRN Reason: Constipation Simvastatin (Zocor) 20 mg PO DAILY [facility] Last Admin: 10/08/18 09:50 Dose: 20 mg Discontinued Medications Enalapril Maleate (Vasotec) 10 mg PO DAILY [facility] Last Admin: 10/07/18 09:38 Dose: 10 mg Magnesium Sulfate 2 gm/ Premix 50 mls @ 25 mls/hr IV ONETIME ONE Stop: 10/07/18 13:29 Last Admin: 10/07/18 11:54 Dose: 25 mls/hr Magnesium Sulfate 2 gm/ Premix 50 mls @ 25 mls/hr IV ONETIME ONE Stop: 10/09/18 00:30 Last Admin: 10/08/18 23:41 Dose: Not Given Ibuprofen (Motrin) 600 mg PO ONETIME ONE Stop: 10/06/18 13:56 Last Admin: 10/06/18 14:17 Dose: 600 mg Levothyroxine Sodium (Synthroid) 50 mcg PO DAILY@0700 [facility] Last Admin: 10/08/18 07:53 Dose: 50 mcg Magnesium Oxide (Magnesium Oxide) 800 mg PO ONETIME ONE Stop: 10/07/18 13:04 Last Admin: 10/07/18 13:23 Dose: 800 mg Non-Formulary Medication (Potassium Chloride [Klor-Con 10]) 10 meq PO DAILY [facility] Calcium Carb & Citrate/Vit D3 Tab # Ptom# 0 each PO DAILY [facility] Last Admin: 10/07/18 09:35 Dose: 1 each Potassium Chloride (Klor-Con M20) 20 meq PO Q48H [facility] Last Admin: 10/06/18 20:05 Dose: Not Given Potassium Chloride (Klor-Con M20) 20 meq PO Q48H [facility] Last Admin: 10/07/18 09:34 Dose: 20 meq Potassium Chloride (Klor-Con M20) 60 meq PO ONETIME ONE Stop: 10/07/18 11:31 Last Admin: 10/07/18 11:52 Dose: 60 meq Potassium Chloride (Klor-Con M20) 40 meq PO ONETIME ONE Stop: 10/08/18 07:29 Last Admin: 10/08/18 07:53 Dose: 40 meq Potassium Chloride (Klor-Con M20) 40 meq PO ONETIME ONE Stop: 10/08/18 22:33 Last Admin: 10/08/18 23:31 Dose: 40 meq Simvastatin (Zocor) 20 mg PO DAILY [facility] Last Admin: 10/07/18 09:38 Dose: 20 mg - Exam General: Alert, Oriented, Cooperative, No Acute Distress HEENT: Pupils Equal, Pupils Reactive, EOMI, Mucous Membr. Moist/[place] Neck: Supple Lungs: Clear to Auscultation, Normal Respiratory Effort Cardiovascular: Regular Rate, Regular Rhythm GI/Abdominal Exam: Normal Bowel Sounds, Soft, Non-Tender, No Organomegaly, No Distention, No Abnormal Bruit (Female) Exam: Deferred Back Exam: Normal Inspection, Decreased Range of Motion Extremities: Normal Inspection, Normal Range of Motion, Non-Tender, No Pedal Edema, Normal Capillary Refill Peripheral Pulses: 2+: Posterior Tibial (L), Posterior Tibial (R), Dorsalis Pedis (L), Dorsalis Pedis (R) Skin: Warm, Dry, Intact Neurological: No New Focal Deficit. No: Normal Gait Psy/Mental Status: Alert, Normal Affect, Normal Mood - Problem List Review Problem List Initiated/Reviewed/Updated: Yes - My Orders Last 24 Hours: My Active Orders 10/08/18 09:00 Calcium Carbonate/Vitamin D3 [Calcium Carbonate/Vitamin D 600 MG-200 Unit] 1 tab PO DAILY Enalapril [Vasotec] 10 mg PO DAILY Simvastatin [Zocor] 20 mg PO DAILY 10/08/18 09:26 Bisacodyl [Dulcolax] 10 mg RECTAL BID PRN 10/09/18 07:00 Levothyroxine [Synthroid] 50 mcg PO DAILY@0700 10/09/18 09:00 Potassium Chloride [Klor-Con M20] 20 meq PO Q48H 10/10/18 05:11 BASIC METABOLIC PANEL,BMP [CHEM] AM CBC WITH AUTO DIFF [HEME] AM MAGNESIUM [CHEM] AM 10/11/18 05:11 BASIC METABOLIC PANEL,BMP [CHEM] AM CBC WITH AUTO DIFF [HEME] AM MAGNESIUM [CHEM] AM - Plan Plan:: Assessment: Acute: Status Post Fall - 2/2 Mechanical fall - She tripped over the carpet and fell forward - PT/OT to assess and eval - Vit D level Right Radial Head Fracture - Splint and Sling for conservative treatment - Dr. Hull saw her this morning - PRN pain medications Left Patellar Fracture - Knee immobilizer applied in ED - Ortho consult for further eval Electrolytes Abnormality * Hyponatremia - Na of 126-->122-->127-->123 - 2/2 thiazide - Thermotabs po TID * S/p Hypokalemia - K of 2.9-->3.3-->4.1 - She is chronically low - She has daily K supplement - Replete and monitor * S/p Hypomagnesemia - Mg of 1.7-->1.9-->2 - Replete and monitor Chronic: HTN, HLD, Hypothyroidism and Anxiety Plan: She is essentially the same Routine AM labs Fall precautions Educated patient about pain control and management DVT/GI prophylaxis Continue OT/PT to asses and treat SW/CM for d/c planning Recommend SNF/Rehab placement Code status: full Additional orders as above LOS anticipate > 96hrs pending SNF/Rehab Placement
[2018-10-09] MEDS: Simvastatin 20 MG Tab PO SCH (08:40)
[2018-10-09] MEDS: Aspirin 81 MG Tab.EC PO SCH (08:40)
[2018-10-09] MEDS: Calcium Carbonate/Vitamin D3 600 MG-200 Units Tab PO SCH (08:40)
[2018-10-09] MEDS: CHLORTHALIDONE 25 MG PO SCH (08:41)
[2018-10-09] MEDS ORDERED: Potassium Chloride 20 MEQ Tab.ER PO SCH (09:00)
[2018-10-09] MEDS: Sodium Chloride/Potassium Chloride Tab PO SCH ×2 (11:39→18:46)
[2018-10-09] MEDS: Acetaminophen/HYDROcodone 325-5 MG Tab PO PRN (21:23)
[2018-10-10] MEDS: Sodium Chloride/Potassium Chloride Tab PO SCH ×3 (06:29→17:05)
[2018-10-10] MEDS: Levothyroxine 50 MCG Tab PO SCH (06:29)
--- NOTE | 2018-10-10 07:35 | PCM.PN ---
- General Info Date of Service: 10/10/18 Admission Dx/Problem (Free Text): Admission Diagnosis/Problem Admission Diagnosis/Problem Elbow fracture Subjective Update: In 2 CK. She reports she feels pretty good. She had just got out of the bathroom. We discussed her overall prognosis and need for more assistance. She has been accepted at [facility]. She is excited about this. Pain remains controlled. Overall labs have been stable. We did discontinue her chlorthalidone as it is felt this is affecting her sodium. Potassium was low again today and this will be supplemented by mouth. She will likely need daily supplementation at discharge. Functional Status: Reports: Pain Controlled, Tolerating Diet, Ambulating, Urinating, Incentive Spirometry. Denies: New Symptoms - Review of Systems General: Reports: No Symptoms. Denies: Fever, Weakness, Fatigue, Malaise, Chills HEENT: Reports: No Symptoms. Denies: Headaches, Sore Throat Pulmonary: Reports: No Symptoms. Denies: Shortness of Breath, Cough, Sputum Cardiovascular: Reports: No Symptoms. Denies: Chest Pain, Palpitations, Edema Gastrointestinal: Reports: No Symptoms. Denies: Abdominal Pain, Constipation, Nausea, Vomiting Genitourinary: Reports: No Symptoms. Denies: Pain Musculoskeletal: Reports: No Symptoms, Arm Pain (right elbow ), Leg Pain (left knee ) Skin: Reports: No Symptoms. Denies: Cyanosis Neurological: Reports: No Symptoms. Denies: Confusion Psychiatric: Reports: No Symptoms - Patient Data Vitals - Most Recent: Last Vital Signs Temp 97.5 F 10/10/18 06:28 Pulse 67 10/10/18 06:28 Resp 14 10/10/18 06:28 BP 114/64 10/10/18 06:28 Pulse Ox 94 L 10/10/18 06:28 Weight - Most Recent: 143 lb 11.2 oz I&O - Last 24 Hours: Intake & Output 10/09/18 10/10/18 10/10/18 22:59 06:59 14:59 Intake Total 820 800 Output Total 1200 Balance 820 -400 Lab Results Last 24 Hours: Laboratory Results - last 24 hr 10/10/18 10/10/18 Range/Units 04:59 04:59 WBC 5.30 (3.98-10.04) K/mm3 RBC 3.86 L (3.98-5.22) M/mm3 Hgb 11.6 (11.2-15.7) gm/L Hct 34.0 L (34.1-44.9) % MCV 88.1 (79.4-94.8) fl MCH 30.1 (25.6-32.2) pg MCHC 34.1 (32.2-35.5) g/dl RDW Std Deviation 41.6 (36.4-46.3) fL Plt Count 256 (182-369) K/mm3 MPV 8.8 L (9.4-12.3) fl Neut % (Auto) 64.1 (34.0-71.1) % Lymph % (Auto) 18.5 L (19.3-51.7) % [place] % (Auto) 11.7 (4.7-12.5) % Eos % (Auto) 4.3 (0.7-5.8) Baso % (Auto) 0.6 (0.1-1.2) % Neut # (Auto) 3.40 (1.56-6.13) K/mm3 Lymph # (Auto) 0.98 L (1.18-3.74) K/mm3 [place] # (Auto) 0.62 H (0.24-0.36) K/mm3 Eos # (Auto) 0.23 (0.04-0.36) K/mm3 Baso # (Auto) 0.03 (0.01-0.08) K/mm3 Sodium 124 L (136-145) mEq/L Potassium 3.0 L (3.5-5.1) mEq/L Chloride 89 L (98-107) mEq/L Carbon Dioxide 28 (21-32) mEq/L Anion Gap 10.0 (5-15) BUN 13 (7-18) mg/dL Creatinine 0.7 (0.55-1.02) mg/dL Est Cr Clr Drug Dosing 44.51 mL/min Estimated GFR (MDRD) > 60 (>60) mL/min BUN/Creatinine Ratio 18.6 H (14-18) Glucose 91 (83-115) mg/dL Calcium 8.6 (8.5-10.1) mg/dL Magnesium 1.8 (1.8-2.4) mg/dl Med Orders - Current: Current Medications Hydrocodone Bitart/Acetaminophen ([place] 325-5 Mg) 1 tab PO Q4H PRN PRN Reason: Pain (moderate 4-6) Last Admin: 10/09/18 21:23 Dose: 1 tab Albuterol/Ipratropium (Duoneb 3.0-0.5 Mg/3 Ml) 3 ml NEB Q4H PRN PRN Reason: Shortness Of Breath/wheezing Aspirin (Halfprin) 81 mg PO DAILY [facility] Last Admin: 10/09/18 08:40 Dose: 81 mg Baclofen (Lioresal) 10 mg PO TID PRN PRN Reason: Pain Bisacodyl (Dulcolax) 5 mg PO DAILY PRN PRN Reason: Constipation Bisacodyl (Dulcolax) 10 mg RECTAL BID PRN PRN Reason: Constipation Calcium Carbonate (Calcium Carbonate/Vitamin D 600 Mg-200 Unit) 1 tab PO DAILY [facility] Last Admin: 10/09/18 08:40 Dose: 1 tab Docusate Sodium (Colace) 100 mg PO BID PRN PRN Reason: Constipation Enalapril Maleate (Vasotec) 10 mg PO DAILY [facility] Last Admin: 10/09/18 08:40 Dose: 10 mg Hydromorphone HCl (Dilaudid) 0.25 mg IVPUSH Q2H PRN PRN Reason: Pain (severe 7-10) Promethazine HCl 6.25 mg/ (Sodium Chloride) 50.25 mls @ 100 mls/hr IV Q6H PRN PRN Reason: Nausea/Vomiting Ibuprofen (Motrin) 400 mg PO Q6H PRN PRN Reason: Pain (mild 1-3) Last Admin: 10/08/18 15:46 Dose: 400 mg Levothyroxine Sodium (Synthroid) 50 mcg PO DAILY@0700 [facility] Last Admin: 10/10/18 06:29 Dose: 50 mcg Lorazepam (Ativan) 0.25 mg IV Q6H PRN PRN Reason: Anxiety Ondansetron HCl (Zofran) 4 mg IV Q6H PRN PRN Reason: Nausea/Vomiting Last Admin: 10/07/18 13:24 Dose: 4 mg Oral Electrolytes (Thermotabs) 1 each PO TIDMEALS [facility] Last Admin: 10/10/18 06:29 Dose: 1 each Chlorthalidone 25 Mg (Tab #Ptom#) 0 each PO DAILY [facility] Last Admin: 10/09/18 08:41 Dose: 12.5 each Polyethylene Glycol (Miralax) 17 gm PO DAILY PRN PRN Reason: Constipation Potassium Chloride (Klor-Con M20) 20 meq PO Q48H [facility] Last Admin: 10/09/18 08:48 Dose: 20 meq Senna/Docusate Sodium (Senna Plus) 1 tab PO BID PRN PRN Reason: Constipation Simvastatin (Zocor) 20 mg PO DAILY [facility] Last Admin: 10/09/18 08:40 Dose: 20 mg Discontinued Medications Enalapril Maleate (Vasotec) 10 mg PO DAILY [facility] Last Admin: 10/07/18 09:38 Dose: 10 mg Magnesium Sulfate 2 gm/ Premix 50 mls @ 25 mls/hr IV ONETIME ONE Stop: 10/07/18 13:29 Last Admin: 10/07/18 11:54 Dose: 25 mls/hr Magnesium Sulfate 2 gm/ Premix 50 mls @ 25 mls/hr IV ONETIME ONE Stop: 10/09/18 00:30 Last Admin: 10/08/18 23:41 Dose: Not Given Ibuprofen (Motrin) 600 mg PO ONETIME ONE Stop: 10/06/18 13:56 Last Admin: 10/06/18 14:17 Dose: 600 mg Levothyroxine Sodium (Synthroid) 50 mcg PO DAILY@0700 [facility] Last Admin: 10/08/18 07:53 Dose: 50 mcg Magnesium Oxide (Magnesium Oxide) 800 mg PO ONETIME ONE Stop: 10/07/18 13:04 Last Admin: 10/07/18 13:23 Dose: 800 mg Non-Formulary Medication (Potassium Chloride [Klor-Con 10]) 10 meq PO DAILY [facility] Calcium Carb & Citrate/Vit D3 Tab # Ptom# 0 each PO DAILY [facility] Last Admin: 10/07/18 09:35 Dose: 1 each Potassium Chloride (Klor-Con M20) 20 meq PO Q48H [facility] Last Admin: 10/06/18 20:05 Dose: Not Given Potassium Chloride (Klor-Con M20) 20 meq PO Q48H [facility] Last Admin: 10/07/18 09:34 Dose: 20 meq Potassium Chloride (Klor-Con M20) 60 meq PO ONETIME ONE Stop: 10/07/18 11:31 Last Admin: 10/07/18 11:52 Dose: 60 meq Potassium Chloride (Klor-Con M20) 40 meq PO ONETIME ONE Stop: 10/08/18 07:29 Last Admin: 10/08/18 07:53 Dose: 40 meq Potassium Chloride (Klor-Con M20) 40 meq PO ONETIME ONE Stop: 10/08/18 22:33 Last Admin: 10/08/18 23:31 Dose: 40 meq Simvastatin (Zocor) 20 mg PO DAILY [facility] Last Admin: 10/07/18 09:38 Dose: 20 mg - Exam Quality Assessment: DVT Prophylaxis General: Alert, Oriented, Cooperative, No Acute Distress HEENT: Pupils Equal, Pupils Reactive, EOMI, Mucous Membr. Moist/[place] Neck: Supple, Trachea Midline Lungs: Clear to Auscultation, Normal Respiratory Effort Cardiovascular: Regular Rate, Regular Rhythm GI/Abdominal Exam: Normal Bowel Sounds, Soft, Non-Tender, No Organomegaly, No Distention (Female) Exam: Deferred Back Exam: Normal Inspection, Full Range of Motion Extremities: No Pedal Edema, Normal Capillary Refill, Arm Pain (right elbow), Leg Pain (left knee), Limited Range of Motion (splint in place on right elbow. Knee immobilizer on left leg.), Other (good CMS in all extremities.) Peripheral Pulses: 2+: Radial (L), Dorsalis Pedis (L), Dorsalis Pedis (R) Skin: Warm, Dry, Intact Neurological: No New Focal Deficit Psy/Mental Status: Alert, Normal Affect, Normal Mood - Problem List & Annotations (1) Fall SNOMED Code(s): 9287503, 695890841 Code(s): W19.XXXA - UNSPECIFIED FALL, INITIAL ENCOUNTER Status: Acute Priority: High Current Visit: Yes Qualifiers: Encounter type: initial encounter Qualified Code(s): W19.XXXA - Unspecified fall, initial encounter (2) Left patella fracture SNOMED Code(s): 64100596 Code(s): S82.002A - UNSP FRACTURE OF LEFT PATELLA, INIT FOR CLOS FX Status : Acute Priority: High Current Visit: Yes Qualifiers: Encounter type: initial encounter Fracture type: closed Fracture morphology: other fracture Qualified Code(s): S82.092A - Other fracture of left patella, initial encounter for closed fracture (3) Right radial head fracture SNOMED Code(s): 925872957 Code(s): S52.121A - DISP FX OF HEAD OF RIGHT RADIUS, INIT FOR CLOS FX Status: Acute Priority: High Current Visit: Yes Qualifiers: Encounter type: initial encounter Fracture type: closed Fracture alignment: nondisplaced Qualified Code(s): S52.124A - Nondisplaced fracture of head of right radius, initial encounter for closed fracture (4) Hyponatremia SNOMED Code(s): 42883606 Code(s): E87.1 - HYPO-OSMOLALITY AND HYPONATREMIA Status: Acute Priority : Medium Current Visit: Yes (5) Hypomagnesemia SNOMED Code(s): 246836253 Code(s): E83.42 - HYPOMAGNESEMIA Status: Resolved Priority: High Current Visit: Yes (6) Hypokalemia SNOMED Code(s): 22190011 Code(s): E87.6 - HYPOKALEMIA Status: Resolved Priority: High Current Visit: Yes - Problem List Review Problem List Initiated/Reviewed/Updated: Yes - Plan Plan:: Assessment: Acute: Status Post Fall - 2/2 Mechanical fall - She tripped over the carpet and fell forward - PT/OT to assess and eval - Vit D level Right Radial Head Fracture - Splint and Sling for conservative treatment - Dr. Hull saw her yesterday - PRN pain medications Left Patellar Fracture - Knee immobilizer applied in ED - Ortho consult for further eval Electrolytes Abnormality * Hyponatremia - Na of 126-->122-->127-->123-->124 - 2/2 thiazide -> discontinue - Thermotabs TID * S/p Hypokalemia - K of 2.9-->3.3-->4.1 - She is chronically low - She has daily K supplement - Replete and monitor * S/p Hypomagnesemia - Mg of 1.7-->1.9-->2 - Replete and monitor Chronic: HTN, HLD, Hypothyroidism and Anxiety Plan: She is essentially the same Routine AM labs Fall precautions Educated patient about pain control and management DVT/GI prophylaxis Continue OT/PT to asses and treat SW/CM for d/c planning Recommend SNF/Rehab placement Code status: full Additional orders as above LOS anticipate > 96hrs pending SNF/Rehab Placement -> Accepted at [facility] tomorrow
[2018-10-10] MEDS: Calcium Carbonate/Vitamin D3 600 MG-200 Units Tab PO SCH (08:13)
[2018-10-10] MEDS: Simvastatin 20 MG Tab PO SCH (08:14)
[2018-10-10] MEDS: Aspirin 81 MG Tab.EC PO SCH (08:14)
[2018-10-10] MEDS: CHLORTHALIDONE 25 MG PO SCH (08:17)
[2018-10-10] MEDS: Potassium Chloride 20 MEQ Tab.ER PO SCH (11:38)
[2018-10-10] MEDS: Acetaminophen/HYDROcodone 325-5 MG Tab PO PRN (21:46)
[2018-10-11] MEDS: Levothyroxine 50 MCG Tab PO SCH (06:08)
[2018-10-11] MEDS: Sodium Chloride/Potassium Chloride Tab PO SCH (06:08)
--- NOTE | 2018-10-11 06:39 | PCM.DCSUM1 ---
Discharge Summary - Hospital Course HPI Initial Comments: This is an 83 yo pleasant elderly white female with past medical hx/o HTN, HLD, Hypothyroidism and Anxiety who comes in for evaluation right elbow and left knee pain [facility] She states she tripped on the floor lost her balance and fell forward. She landed on her left knee and right elbow. Her chin also hit the floor. She denies LOC and no loss of bladder or bowel control. No prodromal symptoms. She further denies any neurological symptoms. Her initial labs in ED were fairly unremarkable. Her knee x-ray report read as joint effusion and patellar fracture. Her elbow x-ray report read as suspicious for slightly impacted radial neck fracture with joint effusion. Patient lives alone and has no support at home. She is coming in primarily for left patellar and right distal radial fractures. Diagnosis: Stroke: No - Discharge Data Discharge Date: 10/11/18 (Admit date: 10/07/18) Discharge Disposition: DC/Tfer to SNF 03 Condition: Good - Discharge Diagnosis/Problem(s) (1) Fall SNOMED Code(s): 0248994, 584261140 ICD Code: W19.XXXA - UNSPECIFIED FALL, INITIAL ENCOUNTER Status: Acute Priority: High Qualifiers: Encounter type: initial encounter Qualified Code(s): W19.XXXA - Unspecified fall, initial encounter (2) Left patella fracture SNOMED Code(s): 67553100 ICD Code: S82.002A - UNSP FRACTURE OF LEFT PATELLA, INIT FOR CLOS FX Status : Acute Priority: High Qualifiers: Encounter type: initial encounter Fracture type: closed Fracture morphology: other fracture Qualified Code(s): S82.092A - Other fracture of left patella, initial encounter for closed fracture (3) Right radial head fracture SNOMED Code(s): 223650101 ICD Code: S52.121A - DISP FX OF HEAD OF RIGHT RADIUS, INIT FOR CLOS FX Status: Acute Priority: High Qualifiers: Encounter type: initial encounter Fracture type: closed Fracture alignment: nondisplaced Qualified Code(s): S52.124A - Nondisplaced fracture of head of right radius, initial encounter for closed fracture (4) Hyponatremia SNOMED Code(s): 53981646 ICD Code: E87.1 - HYPO-OSMOLALITY AND HYPONATREMIA Status: Acute Priority : Medium - Patient Summary/Data Consults: Consultations 10/06/18 15:12 Consult to Case Management/Fondant Puff Maker [CONS] Routine Consult to Spiritual Care [CONS] Routine OT Evaluation and Treatment [CONS] Routine PT Evaluation and Treatment [CONS] Routine 10/06/18 15:59 Consult to Physician [CONS] Routine Labs Pending at D/C: None Recommended Follow-up Testing/Procedures: Follow-up with PCP within 5-7 days of discharge. -Suggest re-check BMP and magnesium at that time. Follow-up with Ortho within 2 weeks. Hospital Course: Assessment: Acute: Status Post Fall - 2/2 Mechanical fall - She tripped over the carpet and fell forward - PT/OT to assess and eval - Vit D level Right Radial Head Fracture - Splint and Sling for conservative treatment - Dr. Hull saw her yesterday - PRN pain medications Left Patellar Fracture - Knee immobilizer applied in ED - Ortho consult for further eval Electrolytes Abnormality * Hyponatremia - Na of 126-->122-->127-->123-->124-->126 - 2/2 thiazide -> hold - Thermotabs TID * S/p Hypokalemia - K of 2.9-->3.3-->4.1 - She is chronically low - She has daily K supplement - Replete and monitor * S/p Hypomagnesemia - Mg of 1.7-->1.9-->2.0 - Replete and monitor Chronic: HTN, HLD, Hypothyroidism and Anxiety Plan: She is essentially the same Routine AM labs Fall precautions Educated patient about pain control and management DVT/GI prophylaxis Continue OT/PT to asses and treat SW/CM for d/c planning Recommend SNF/Rehab placement Code status: full Additional orders as above LOS anticipate > 96hrs pending SNF/Rehab Placement -> Accepted at [facility] Yecenia was admitted to the floor after a fall resulting in a patellar fracture and radial neck fracture. she reportedly was at the [facility] and her shoe was hung up on a walking surface causing her to fall. She was placed in a left knee immobilizer and the right arm splint. She was also placed in a right sling. Recommendations were for toe-touch on the left foot and for her right arm to remain immobile for 10 days post injury. She did work with physical therapy and occupational therapy who are recommending a SNF rehabilitation stay. She was noted to have electrolyte abnormalities including what appears to be chronic hyponatremia. She was given Thermo tabs with minimal improvement. Suspect this may be secondary to thiazide diuretic which she is on for a home med. Suggest holding her thiazide and considering another possible hypertensive medication. This can be discussed further with her primary care provider. Her potassium was also noted to be chronically low and she is on a daily supplement. Magnesium was low and was supplemented. She did do quite well while here and her pain was very well controlled. She required occasional Hagan at night to help with pain. She will be sent a prescription for when necessary Hagan every 6 hours for pain. She is also sent a Narcan prescription just in case of oversedation. Vitamin D was still pending at discharge. This can be followed up with by the primary care provider. She was accepted at [facility]. She should continue with physical therapy and occupational therapy. Recommend she follow-up with her primary care provider within 5-7 days of discharge. Recommend she follow up with orthopedics within 2 weeks. All other home medications were continued. - Patient Instructions Diet: Usual Diet as Tolerated Activity: As Tolerated Driving: Do Not Drive Notify Provider of: Fever, Increased Pain, Nausea and/or Vomiting - Discharge Plan *PRESCRIPTION DRUG MONITORING PROGRAM REVIEWED*: No *COPY OF PRESCRIPTION DRUG MONITORING REPORT IN PATIENT KIANNA: No Prescriptions/Med Rec: Acetaminophen/HYDROcodone [Hagan 325-5 MG] 1 tab PO Q6H PRN #10 tablet PRN Reason: Pain (Moderate 4-6) Naloxone HCl [Narcan] 4 mg NS ONETIME PRN #1 spray PRN Reason: Oversedation Home Medications: Home Meds Enalapril Maleate 10 mg PO DAILY 01/08/16 [History] Levothyroxine [Synthroid] 50 mcg PO DAILY 01/08/16 [History] Simvastatin 20 mg PO DAILY 01/08/16 [History] Aspirin 81 mg PO DAILY 10/06/18 [History] Baclofen 10 mg PO TID PRN 10/06/18 [History] Calcium Carb & Citrate/Vit D3 [Calcium + D3 ER Tablet] 1 tab PO DAILY 10/06/18 [ History] Potassium Chloride [Klor-Con 10] 20 meq PO Q48H 10/06/18 [History] Acetaminophen/HYDROcodone [Hagan 325-5 MG] 1 tab PO Q6H PRN #10 tablet 10/11/18 [Rx] Chlorthalidone 12.5 mg PO DAILY #0 10/11/18 [Rx] Naloxone HCl [Narcan] 4 mg NS ONETIME PRN #1 spray 10/11/18 [Rx] Oxygen Therapy Mode: Room Air Patient Handouts: Radial Head Fracture, [id number], Patellar Fracture, Adult Referrals: Carolee Delgadillo PA-C [Physician Psychiatric Nursing Aide] - 10/20/18 8:45 am (please bring current ID photo and insurance. This is your check in time. ) Ricardo Echevarria MD [Physician] - 10/17/18 11:30 am - Discharge Summary/Plan Comment DC Time >30 min.: Yes (45 mins ) - General Info Date of Service: 10/11/18 Admission Dx/Problem (Free Text: Admission Diagnosis/Problem Admission Diagnosis/Problem Elbow fracture Functional Status: Reports: Pain Controlled, Tolerating Diet, Ambulating, Urinating, Incentive Spirometry. Denies: New Symptoms - Review of Systems General: Reports: No Symptoms. Denies: Fever, Weakness, Fatigue, Malaise, Chills HEENT: Reports: No Symptoms. Denies: Headaches, Sore Throat Pulmonary: Reports: No Symptoms. Denies: Shortness of Breath, Cough, Sputum, Wheezing Cardiovascular: Reports: No Symptoms. Denies: Chest Pain, Palpitations Gastrointestinal: Reports: No Symptoms. Denies: Abdominal Pain, Constipation, Diarrhea, Nausea, Vomiting Genitourinary: Reports: No Symptoms. Denies: Pain Musculoskeletal: Reports: No Symptoms, Arm Pain (right elbow ), Leg Pain (left knee ) Skin: Reports: No Symptoms. Denies: Cyanosis Neurological: Reports: No Symptoms. Denies: Confusion Psychiatric: Reports: No Symptoms - Patient Data Vitals - Most Recent: Last Vital Signs Temp 97.7 F 10/11/18 04:39 Pulse 82 10/11/18 04:39 Resp 14 10/11/18 04:39 BP 139/81 10/11/18 04:39 Pulse Ox 94 L 10/11/18 04:39 Weight - Most Recent: 143 lb 6.4 oz I&O - Last 24 hours: Intake & Output 10/10/18 10/10/18 10/11/18 14:59 22:59 06:59 Intake Total 420 1560 700 Output Total 1000 1000 Balance 420 560 -300 Lab Results - Last 24 hrs: Laboratory Results - last 24 hr 10/10/18 10/11/18 10/11/18 Range/Units 04:59 04:54 04:54 WBC 7.50 (3.98-10.04) K/mm3 RBC 4.23 (3.98-5.22) M/mm3 Hgb 12.8 (11.2-15.7) gm/L Hct 36.9 (34.1-44.9) % MCV 87.2 (79.4-94.8) fl MCH 30.3 (25.6-32.2) pg MCHC 34.7 (32.2-35.5) g/dl RDW Std Deviation 41.0 (36.4-46.3) fL Plt Count 338 D (182-369) K/mm3 MPV 8.4 L (9.4-12.3) fl Neut % (Auto) 59.4 (34.0-71.1) % Lymph % (Auto) 25.1 (19.3-51.7) % [place] % (Auto) 10.0 (4.7-12.5) % Eos % (Auto) 3.9 (0.7-5.8) Baso % (Auto) 0.4 (0.1-1.2) % Neut # (Auto) 4.46 (1.56-6.13) K/mm3 Lymph # (Auto) 1.88 (1.18-3.74) K/mm3 [place] # (Auto) 0.75 H (0.24-0.36) K/mm3 Eos # (Auto) 0.29 (0.04-0.36) K/mm3 Baso # (Auto) 0.03 (0.01-0.08) K/mm3 Sodium 124 L 126 L (136-145) mEq/L Potassium 3.0 L 3.6 (3.5-5.1) mEq/L Chloride 89 L 89 L (98-107) mEq/L Carbon Dioxide 28 28 (21-32) mEq/L Anion Gap 10.0 12.6 (5-15) BUN 13 11 (7-18) mg/dL Creatinine 0.7 0.7 (0.55-1.02) mg/dL Est Cr Clr Drug Dosing 44.51 44.51 mL/min Estimated GFR (MDRD) > 60 > 60 (>60) mL/min BUN/Creatinine Ratio 18.6 H 15.7 (14-18) Glucose 91 102 (83-115) mg/dL Calcium 8.6 9.0 (8.5-10.1) mg/dL Magnesium 1.8 2.0 (1.8-2.4) mg/dl Med Orders - Current: Current Medications Hydrocodone Bitart/Acetaminophen (Hagan 325-5 Mg) 1 tab PO Q4H PRN PRN Reason: Pain (moderate 4-6) Last Admin: 10/10/18 21:46 Dose: 1 tab Albuterol/Ipratropium (Duoneb 3.0-0.5 Mg/3 Ml) 3 ml NEB Q4H PRN PRN Reason: Shortness Of Breath/wheezing Aspirin (Halfprin) 81 mg PO DAILY [facility] Last Admin: 10/10/18 08:14 Dose: 81 mg Baclofen (Lioresal) 10 mg PO TID PRN PRN Reason: Pain Bisacodyl (Dulcolax) 5 mg PO DAILY PRN PRN Reason: Constipation Last Admin: 10/11/18 06:08 Dose: 5 mg Bisacodyl (Dulcolax) 10 mg RECTAL BID PRN PRN Reason: Constipation Calcium Carbonate (Calcium Carbonate/Vitamin D 600 Mg-200 Unit) 1 tab PO DAILY [facility] Last Admin: 10/10/18 08:13 Dose: 1 tab Docusate Sodium (Colace) 100 mg PO BID PRN PRN Reason: Constipation Last Admin: 10/10/18 11:36 Dose: 100 mg Enalapril Maleate (Vasotec) 10 mg PO DAILY [facility] Last Admin: 10/10/18 08:15 Dose: 10 mg Hydromorphone HCl (Dilaudid) 0.25 mg IVPUSH Q2H PRN PRN Reason: Pain (severe 7-10) Promethazine HCl 6.25 mg/ (Sodium Chloride) 50.25 mls @ 100 mls/hr IV Q6H PRN PRN Reason: Nausea/Vomiting Ibuprofen (Motrin) 400 mg PO Q6H PRN PRN Reason: Pain (mild 1-3) Last Admin: 10/08/18 15:46 Dose: 400 mg Levothyroxine Sodium (Synthroid) 50 mcg PO DAILY@0700 [facility] Last Admin: 10/11/18 06:08 Dose: 50 mcg Lorazepam (Ativan) 0.25 mg IV Q6H PRN PRN Reason: Anxiety Ondansetron HCl (Zofran) 4 mg IV Q6H PRN PRN Reason: Nausea/Vomiting Last Admin: 10/07/18 13:24 Dose: 4 mg Oral Electrolytes (Thermotabs) 1 each PO TIDMEALS [facility] Last Admin: 10/11/18 06:08 Dose: 1 each Polyethylene Glycol (Miralax) 17 gm PO DAILY PRN PRN Reason: Constipation Potassium Chloride (Klor-Con M20) 40 meq PO DAILY [facility] Last Admin: 10/10/18 11:38 Dose: 40 meq Senna/Docusate Sodium (Senna Plus) 1 tab PO BID PRN PRN Reason: Constipation Simvastatin (Zocor) 20 mg PO DAILY [facility] Last Admin: 10/10/18 08:14 Dose: 20 mg Discontinued Medications Enalapril Maleate (Vasotec) 10 mg PO DAILY [facility] Last Admin: 10/07/18 09:38 Dose: 10 mg Magnesium Sulfate 2 gm/ Premix 50 mls @ 25 mls/hr IV ONETIME ONE Stop: 10/07/18 13:29 Last Admin: 10/07/18 11:54 Dose: 25 mls/hr Magnesium Sulfate 2 gm/ Premix 50 mls @ 25 mls/hr IV ONETIME ONE Stop: 10/09/18 00:30 Last Admin: 10/08/18 23:41 Dose: Not Given Ibuprofen (Motrin) 600 mg PO ONETIME ONE Stop: 10/06/18 13:56 Last Admin: 10/06/18 14:17 Dose: 600 mg Levothyroxine Sodium (Synthroid) 50 mcg PO DAILY@0700 [facility] Last Admin: 10/08/18 07:53 Dose: 50 mcg Magnesium Oxide (Magnesium Oxide) 800 mg PO ONETIME ONE Stop: 10/07/18 13:04 Last Admin: 10/07/18 13:23 Dose: 800 mg Non-Formulary Medication (Potassium Chloride [Klor-Con 10]) 10 meq PO DAILY [facility] Calcium Carb & Citrate/Vit D3 Tab # Ptom# 0 each PO DAILY [facility] Last Admin: 10/07/18 09:35 Dose: 1 each Chlorthalidone 25 Mg (Tab #Ptom#) 0 each PO DAILY [facility] Last Admin: 10/10/18 08:17 Dose: 12.5 each Potassium Chloride (Klor-Con M20) 20 meq PO Q48H [facility] Last Admin: 10/06/18 20:05 Dose: Not Given Potassium Chloride (Klor-Con M20) 20 meq PO Q48H [facility] Last Admin: 10/07/18 09:34 Dose: 20 meq Potassium Chloride (Klor-Con M20) 60 meq PO ONETIME ONE Stop: 10/07/18 11:31 Last Admin: 10/07/18 11:52 Dose: 60 meq Potassium Chloride (Klor-Con M20) 40 meq PO ONETIME ONE Stop: 10/08/18 07:29 Last Admin: 10/08/18 07:53 Dose: 40 meq Potassium Chloride (Klor-Con M20) 20 meq PO Q48H [facility] Last Admin: 10/09/18 08:48 Dose: 20 meq Potassium Chloride (Klor-Con M20) 40 meq PO ONETIME ONE Stop: 10/08/18 22:33 Last Admin: 10/08/18 23:31 Dose: 40 meq Simvastatin (Zocor) 20 mg PO DAILY [facility] Last Admin: 10/07/18 09:38 Dose: 20 mg - Exam Quality Assessment: Reports: DVT Prophylaxis General: Reports: Alert, Oriented, Cooperative, No Acute Distress HEENT: Reports: Pupils Equal, Pupils Reactive, EOMI, Mucous Membr. Moist/[place] Neck: Reports: Supple, Trachea Midline Lungs: Reports: Clear to Auscultation, Normal Respiratory Effort Cardiovascular: Reports: Regular Rate, Regular Rhythm GI/Abdominal Exam: Normal Bowel Sounds, Soft, Non-Tender, No Organomegaly, No Distention (Female) Exam: Deferred Rectal (Female) Exam: Deferred Back Exam: Reports: Normal Inspection, Full Range of Motion Extremities: No Pedal Edema, Normal Capillary Refill, Arm Pain (right elbow), Leg Pain (left knee ), Limited Range of Motion, Other (Good CMS in all extremities. Splint and sling on right arm. Immobilizer on left knee. ) Skin: Reports: Warm, Dry, Intact Neurological: Reports: No New Focal Deficit Psy/Mental Status: Reports: Alert, Normal Affect, Normal Mood
[2018-10-11 08:28] LABS: VITAMIN D,25-HYDROXY 26.7 ng/ml (30.0-100.0)
[2018-10-11] MEDS: Potassium Chloride 20 MEQ Tab.ER PO SCH (08:37)
[2018-10-11] MEDS: Aspirin 81 MG Tab.EC PO SCH (08:38)
[2018-10-11] MEDS: Calcium Carbonate/Vitamin D3 600 MG-200 Units Tab PO SCH (08:38)
[2018-10-11 08:41] VITALS: BP 115/90
[2018-10-11] MEDS: Simvastatin 20 MG Tab PO SCH (08:41)
== END 2018-10-11 10:07 | DRG 563 ==
LOC: JD.ED 09:28 → JD.MS 14:26 → OBSVTOIN 10-07 17:39 → JD.MS 10-07 17:40
PROVIDERS: ADMIT Internal Medicine; ATTEND Internal Medicine
DX: S52.124A Nondisplaced fracture of head of right radius, initial encounter for closed fracture (principal); E87.1 Hypo-osmolality and hyponatremia; S82.092A Other fracture of left patella, initial encounter for closed fracture; I10 Essential (primary) hypertension; E78.5 Hyperlipidemia, unspecified; E03.9 Hypothyroidism, unspecified; F41.9 Anxiety disorder, unspecified; M25.462 Effusion, left knee; W01.0XXA Fall on same level from slipping, tripping and stumbling without subsequent striking against object, initial encounter; Y92.838 Other recreation area as the place of occurrence of the external cause; E87.6 Hypokalemia; E83.42 Hypomagnesemia; Z79.82 Long term (current) use of aspirin; Z79.890 Hormone replacement therapy; Z79.899 Other long term (current) drug therapy; Z98.890 Other specified postprocedural states
CPT/HCPCS: 36415; 73080; 73564; 80048 ×2; 83735 ×2; 85025; 96365; 96375; 97161; 99284; A9270 ×11; G0378 ×2; J2405; J3475; 29125; 82306; 97110-GO; 97110-GP; 97166-GO; 97530-GO; 97530-GP; 97760-GO

== ENCOUNTER 2019-01-15 13:53 | Emergency (ER) | payer MEDICARE, OTHER ==
[2019-01-15] MEDS ORDERED: Ondansetron 4 MG/2 ML SDV IVPUSH ONE (14:30)
[2019-01-15] MEDS ORDERED: Sodium Chloride 0.9% 1,000 ML IV SCH (14:30)
[2019-01-15] MEDS ORDERED: Sodium Chloride 0.9% 10 ML Syringe FLUSH PRN (14:30)
--- NOTE | 2019-01-15 15:03 | EDM.PDOC ---
ED HPI GENERAL MEDICAL PROBLEM - General Chief Complaint: Gastrointestinal Problem Stated Complaint: NAUSEA UNABLE TO EAT AND FEELS VERY SICK Time Seen by Provider: 01/15/19 14:08 Source of Information: Reports: Patient, RN Notes Reviewed - History of Present Illness INITIAL COMMENTS - FREE TEXT/NARRATIVE: 83 year old female comes in with nausea, generalized weakness. She was admitted to the hospital about 10 to 12 days ago with similar sx, more severe at that time and hypokalemia, hyponatremia. She states she felt well upon discharge and continued to do well up until awakening this AM with above sx. No chest or abd pain. No fever, chills, vomiting or diarrhea. - Related Data Allergies Allergy/AdvReac Type Severity Reaction Status Date / Time No Known Allergies Allergy Verified 01/15/19 14:11 Home Meds: Home Meds Levothyroxine [Synthroid] 50 mcg PO DAILY 01/08/16 [History] Aspirin 81 mg PO DAILY 10/06/18 [History] Calcium Carb, Citrate/Vit D3 [Calcium + D3 ER Tablet] 1 tab PO DAILY 10/06/18 [ History] Sertraline [Zoloft] 25 mg PO DAILY 01/04/19 [History] Simvastatin 20 mg PO DAILY 01/04/19 [History] ALPRAZolam [Xanax] 0.25 mg PO DAILY PRN 01/15/19 [History] Baclofen 10 mg PO TID 01/15/19 [History] LORazepam [Ativan] 0.5 mg PO DAILY 01/15/19 [History] Potassium Chloride 20 meq PO Q48H 01/15/19 [History] traMADol [Ultram] 50 mg PO BID 01/15/19 [History] Past Medical History HEENT History: Reports: Cataract Other HEENT History: wears glasses Cardiovascular History: Reports: High Cholesterol, Hypertension FILLING OPERATOR History: Reports: , Spontaneous Other FILLING OPERATOR History: x4 Musculoskeletal History: Reports: Arthritis Neurological History: Reports: None Psychiatric History: Reports: Anxiety Endocrine/Metabolic History: Reports: Hypothyroidism - Infectious Disease History Infectious Disease History: Reports: Measles - Past Surgical History Musculoskeletal Surgical History: Reports: Arthroscopic Knee, Shoulder Surgery Other Musculoskeletal Surgeries/Procedures:: R shoulder. Recent fall with fx to knee, shoulde r and R wrist Social & Family History - Family History Family Medical History: Noncontributory - Tobacco Use Smoking Status *Q: Never Smoker - Caffeine Use Caffeine Use: Reports: Coffee Other Caffeine Use: 2/day Caffeine Use Comment: Drinks about 2 cups of coffee daily ED ROS GENERAL - Review of Systems Review Of Systems: See Below Constitutional: Denies: Fever, Chills HEENT: Denies: Throat Pain Respiratory: Denies: Shortness of Breath, Pleuritic Chest Pain, Cough Cardiovascular: Denies: Chest Pain GI/Abdominal: Reports: Nausea. Denies: Abdominal Pain, Diarrhea, Hematochezia, Melena, Vomiting : Reports: No Symptoms Musculoskeletal: Reports: No Symptoms Skin: Reports: No Symptoms Neurological: Reports: Dizziness. Denies: Numbness, Trouble Speaking ED EXAM, GI/ABD - Physical Exam Exam: See Below General Appearance: Alert, No Apparent Distress Eyes: Bilateral: Normal Appearance Throat/Mouth: Normal Inspection, Normal Oropharynx Head: Atraumatic. No: Facial Swelling Neck: Supple, Full Range of Motion Respiratory/Chest: No Respiratory Distress, Lungs Clear, Chest Non-Tender Cardiovascular: Regular Rate, Rhythm GI/Abdominal Exam: Soft, Non-Tender. No: Guarding Back Exam: No: CVA Tenderness (L), CVA Tenderness (R) Extremities: Normal Inspection, Normal Range of Motion. No: Leg Pain, Increased Warmth, Redness Neurological: Alert, Oriented, No Motor/Sensory Deficits Skin Exam: Warm, Dry, Normal Color Course - Vital Signs Last Recorded V/S: Last Vital Signs Temp 97.7 F 01/15/19 16:30 Pulse 70 01/15/19 16:30 Resp 16 01/15/19 16:30 BP 121/67 01/15/19 16:30 Pulse Ox 94 L 01/15/19 16:30 Orthostatic Blood Pressure [ 119/72 Standing] Orthostatic Blood Pressure [ 121/67 Supine] - Orders/Labs/Meds Orders: Active Orders 24 hr Category Date Time Status Peripheral IV Care [RC] . DIRECTED Care 01/15/19 14:31 Active Sodium Chloride 0.9% [Normal Saline] 1,000 ml Med 01/15/19 14:30 Active IV ONETIME Sodium Chloride 0.9% [Saline Flush] Med 01/15/19 14:30 Active 10 ml FLUSH ASDIRECTED PRN Peripheral IV Insertion Adult [OM.PC] Stat Oth 01/15/19 14:30 Ordered Medication Orders Sodium Chloride (Normal Saline) 1,000 mls @ 999 mls/hr IV ONETIME INES Last Admin: 01/15/19 15:19 Dose: 999 mls/hr Sodium Chloride (Saline Flush) 10 ml FLUSH ASDIRECTED PRN PRN Reason: Keep Vein Open Last Admin: 01/15/19 15:20 Dose: 10 ml Labs: Laboratory Tests 01/15/19 01/15/19 Range/Units 15:15 15:15 WBC 10.90 H (3.98-10.04) K/mm3 RBC 4.33 (3.98-5.22) M/mm3 Hgb 12.8 (11.2-15.7) gm/dl Hct 39.3 (34.1-44.9) % MCV 90.8 D (79.4-94.8) fl MCH 29.6 (25.6-32.2) pg MCHC 32.6 (32.2-35.5) g/dl RDW Std Deviation 42.2 (36.4-46.3) fL Plt Count 264 (182-369) K/mm3 MPV 8.6 L (9.4-12.3) fl Neut % (Auto) 88.5 H (34.0-71.1) % Lymph % (Auto) 5.0 L (19.3-51.7) % [place] % (Auto) 6.1 (4.7-12.5) % Eos % (Auto) 0 L (0.7-5.8) Baso % (Auto) 0.1 (0.1-1.2) % Neut # (Auto) 9.64 H (1.56-6.13) K/mm3 Lymph # (Auto) 0.55 L (1.18-3.74) K/mm3 [place] # (Auto) 0.67 H (0.24-0.36) K/mm3 Eos # (Auto) 0.00 L (0.04-0.36) K/mm3 Baso # (Auto) 0.01 (0.01-0.08) K/mm3 Manual Slide Review Abnormal smear Sodium 131 L (136-145) mEq/L Potassium 4.2 (3.5-5.1) mEq/L Chloride 99 (98-107) mEq/L Carbon Dioxide 26 (21-32) mEq/L Anion Gap 10.2 (5-15) BUN 12 (7-18) mg/dL Creatinine 0.6 (0.55-1.02) mg/dL Est Cr Clr Drug Dosing 57.17 mL/min Estimated GFR (MDRD) > 60 (>60) mL/min BUN/Creatinine Ratio 20.0 H (14-18) Glucose 114 (83-115) mg/dL Calcium 8.9 (8.5-10.1) mg/dL Total Bilirubin 0.7 (0.2-1.0) mg/dL AST 15 (15-37) U/L ALT 18 (14-59) U/L Alkaline Phosphatase 60 (46-116) U/L Total Protein 6.7 (6.4-8.2) g/dl Albumin 3.4 (3.4-5.0) g/dl Globulin 3.3 gm/dL Albumin/Globulin Ratio 1.0 (1-2) Meds: Medications Generic Name Dose Route Start Last Admin Trade Name Freq PRN Reason Stop Dose Admin Sodium Chloride 1,000 mls @ 999 mls/hr 01/15/19 14:30 01/15/19 15:19 Normal Saline IV 999 mls/hr ONETIME INES Administration Sodium Chloride 10 ml 01/15/19 14:30 01/15/19 15:20 Saline Flush FLUSH 10 ml ASDIRECTED PRN Administration Keep Vein Open Discontinued Medications Generic Name Dose Route Start Last Admin Trade Name Freq PRN Reason Stop Dose Admin Ondansetron HCl 4 mg 01/15/19 14:30 01/15/19 15:19 Zofran IVPUSH 01/15/19 14:31 4 mg ONETIME ONE Administration - Re-Assessments/Exams Free Text/Narrative Re-Assessment/Exam: 01/15/19 16:55 K+ was good at 4.2, Na mildly low at 131, did give her 1 liter NS while obtaining labs, vitals remain good, discharge instr. as documented. Departure - Departure Time of Disposition: 16:28 Disposition: Home, Self-Care 01 Condition: Fair Clinical Impression: Dizziness, Hyponatremia - Discharge Information Instructions: Hyponatremia, [id number] Referrals: Ricardo Echevarria MD [Primary Care Provider] - Forms: ED Department Discharge Additional Instructions: rest, for now you can safely use small amounts of salt with your meals, continue current medications as prescribed, follow up with your regular medical provider in about 7 to 10 days for recheck, return to ED if symptoms worsening in any way. - My Orders Last 24 Hours: My Active Orders 01/15/19 14:30 Sodium Chloride 0.9% [Normal Saline] 1,000 ml IV ONETIME Sodium Chloride 0.9% [Saline Flush] 10 ml FLUSH ASDIRECTED PRN Peripheral IV Insertion Adult [OM.PC] Stat 01/15/19 14:31 Peripheral IV Care [RC] . DIRECTED - Assessment/Plan Last 24 Hours: My Active Orders 01/15/19 14:30 Sodium Chloride 0.9% [Normal Saline] 1,000 ml IV ONETIME Sodium Chloride 0.9% [Saline Flush] 10 ml FLUSH ASDIRECTED PRN Peripheral IV Insertion Adult [OM.PC] Stat 01/15/19 14:31 Peripheral IV Care [RC] . DIRECTED
[2019-01-15 16:32] VITALS: BP 121/67; PULSE 70
== END 2019-01-15 16:40 | disposition home or self-care (01) ==
LOC: JD.ED 13:53
DX: E87.1 Hypo-osmolality and hyponatremia (principal); R42 Dizziness and giddiness; E03.9 Hypothyroidism, unspecified; E78.00 Pure hypercholesterolemia, unspecified; I10 Essential (primary) hypertension; F41.9 Anxiety disorder, unspecified; Z79.82 Long term (current) use of aspirin; Z79.899 Other long term (current) drug therapy; Z79.890 Hormone replacement therapy
CPT/HCPCS: 36415; 80053; 85025; 96361; 96374; 99284; J2405; J7040; 99283; J7030

== ENCOUNTER 2019-01-25 07:49 | Inpatient (IN) | payer MEDICARE, OTHER ==
--- NOTE | 2019-01-25 08:08 | EDM.PDOC ---
ED HPI GENERAL MEDICAL PROBLEM - General Chief Complaint: General Stated Complaint: NAUSEA, CANT EAT AND BLACK STOOLS Time Seen by Provider: 01/25/19 08:05 Source of Information: Reports: Patient, Family, RN Notes Reviewed - History of Present Illness INITIAL COMMENTS - FREE TEXT/NARRATIVE: 83-year-old female comes in with generalized weakness, nausea, poor appetite. His recently diagnosed with pneumonia a couple of weeks ago. She finished antibiotics about 5 days ago. We'll does have occasional mostly nonproductive cough. Her major frustration is generalized weakness, fatigue, nausea, poor appetite. Morning she had a moderately black stool. Eats her stools are normally dark but not this black. No chest or abdominal pain. She does take daily baby aspirin in addition to her other medications. Does have history of hypothyroidism. - Related Data Allergies Allergy/AdvReac Type Severity Reaction Status Date / Time No Known Allergies Allergy Verified 01/25/19 17:19 Home Meds: Home Meds Levothyroxine [Synthroid] 50 mcg PO DAILY 01/08/16 [History] Aspirin 81 mg PO DAILY 10/06/18 [History] Calcium Carb, Citrate/Vit D3 [Calcium + D3 ER Tablet] 500 mg PO BID 10/06/18 [ History] Sertraline [Zoloft] 25 mg PO DAILY 01/04/19 [History] Simvastatin 20 mg PO DAILY 01/04/19 [History] ALPRAZolam [Xanax] 0.25 mg PO DAILY PRN 01/15/19 [History] Baclofen 10 mg PO TID 01/15/19 [History] LORazepam [Ativan] 0.5 mg PO ASDIRECTED 01/15/19 [History] Potassium Chloride 20 meq PO Q48H 01/15/19 [History] traMADol [Ultram] 50 mg PO BID 01/15/19 [History] Acetaminophen/HYDROcodone [Emerson 325-5 MG] 1 tab PO BID PRN 01/25/19 [History] Cholecalciferol (Vitamin D3) [Vitamin D3] 1,000 unit PO DAILY 01/25/19 [History] Enalapril [Vasotec] 5 mg PO DAILY 01/25/19 [History] Past Medical History HEENT History: Reports: Cataract Other HEENT History: wears glasses Cardiovascular History: Reports: High Cholesterol, Hypertension 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 Recent fall with fx to knee, shoulde r and R wrist; back sx Social & Family History - Family History Family Medical History: Noncontributory - Tobacco Use Smoking Status *Q: Never Smoker - Caffeine Use Caffeine Use: Reports: Coffee Other Caffeine Use: 2/day Caffeine Use Comment: Drinks about 2 cups of coffee daily - Recreational Drug Use Recreational Drug Use: No ED ROS GENERAL - Review of Systems Review Of Systems: See Below Constitutional: Denies: Fever, Chills, Diaphoresis HEENT: Denies: Rhinitis, Sinus Problem, Throat Pain Respiratory: Reports: Shortness of Breath, Cough (Exertional occasional). Denies: Sputum Cardiovascular: Reports: Lightheadedness. Denies: Chest Pain (Mostly nonproductive) GI/Abdominal: Reports: Decreased Appetite, Nausea, Other (Black stool this past morning). Denies: Abdominal Pain Musculoskeletal: Denies: Leg Pain Skin: Denies: Bruising, Rash Neurological: Reports: Dizziness. Denies: Numbness, Tingling, Trouble Speaking , Weakness ED EXAM, GENERAL - Physical Exam Exam: See Below General Appearance: Alert, No Apparent Distress Eye Exam: Bilateral Eye: PERRL Throat/Mouth: Normal Inspection Head: Atraumatic Neck: Supple Respiratory/Chest: No Respiratory Distress, Rales. No: Rhonchi (Bilateral bases ), Wheezing Cardiovascular: Regular Rate, Rhythm GI/Abdominal: Soft, Non-Tender Rectal (Female) Exam: Other (dark brn stool, heme neg, no mass or unusual tenderness) Extremities: Normal Inspection. No: Pedal Edema, Leg Pain, Increased Warmth, Redness Neurological: Alert, Oriented, No Motor/Sensory Deficits Skin Exam: Warm, Dry, Normal Color EKG INTERPRETATION EKG Date: 01/25/19 Rhythm: NSR [place]: Normal P-Wave: Present QRS: Normal ST-T: Normal Course - Vital Signs Last Recorded V/S: Last Vital Signs Temp 98.1 F 01/25/19 15:37 Pulse 81 01/25/19 15:37 Resp 20 01/25/19 15:37 BP 115/54 L 01/25/19 15:37 Pulse Ox 95 01/25/19 15:37 - Orders/Labs/Meds Orders: Active Orders 24 hr Category Date Time Status CULTURE BLOOD [BC] Stat Lab 01/25/19 11:05 Received PROCALCITONIN [REF] Stat Lab 01/25/19 08:28 Received Sodium Chloride 0.9% [Normal Saline] 1,000 ml Med 01/25/19 09:45 Active IV ONETIME Sodium Chloride 0.9% [Saline Flush] Med 01/25/19 08:17 Active 10 ml FLUSH ASDIRECTED PRN Peripheral IV Insertion Adult [OM.PC] Stat Oth 01/25/19 08:17 Ordered Medication Orders Acetaminophen (Tylenol) 650 mg PO Q4H PRN PRN Reason: Pain (Mild 1-3)/fever Albuterol/Ipratropium (Duoneb 3.0-0.5 Mg/3 Ml) 3 ml NEB Q6HRRT [facility] Last Admin: 01/25/19 15:05 Dose: 3 ml Benzonatate (Tessalon Perles) 100 mg PO TID PRN PRN Reason: Cough Enoxaparin Sodium (Lovenox) 40 mg SUBCUT DAILY [facility] Sodium Chloride (Normal Saline) 1,000 mls @ 999 mls/hr IV ONETIME [facility] Last Admin: 01/25/19 09:43 Dose: 999 mls/hr Vancomycin HCl 1 gm/ Sodium (Chloride) 250 mls @ 250 mls/hr IV Q24H [facility] Last Admin: 01/25/19 16:02 Dose: 250 mls/hr Piperacillin Sod/Tazobactam (Sod 4.5 gm/ Sodium Chloride) 100 mls @ 25 mls/hr IV Q8H [facility] Levofloxacin/Dextrose 750 mg/ (Premix) 150 mls @ 100 mls/hr IV Q48H [facility] Sodium Chloride (Saline Flush) 10 ml FLUSH ASDIRECTED PRN PRN Reason: Keep Vein Open Last Admin: 01/25/19 08:31 Dose: 10 ml Vancomycin HCl (Pharmacy To Dose - Vancomycin) 1 dose .XX ASDIRECTED [facility] Labs: Laboratory Tests 01/25/19 01/25/19 01/25/19 Range/Units 08:28 08:28 08:28 WBC 10.54 H (3.98-10.04) K/mm3 RBC 4.04 (3.98-5.22) M/mm3 Hgb 11.7 (11.2-15.7) gm/dl Hct 35.5 (34.1-44.9) % MCV 87.9 (79.4-94.8) fl MCH 29.0 (25.6-32.2) pg MCHC 33.0 (32.2-35.5) g/dl RDW Std Deviation 40.5 (36.4-46.3) fL Plt Count 651 H D (182-369) K/mm3 MPV 8.0 L (9.4-12.3) fl Neut % (Auto) 78.9 H (34.0-71.1) % Lymph % (Auto) 9.3 L (19.3-51.7) % Reynolds % (Auto) 7.6 (4.7-12.5) % Eos % (Auto) 0.9 (0.7-5.8) Baso % (Auto) 0.3 (0.1-1.2) % Neut # (Auto) 8.31 H (1.56-6.13) K/mm3 Lymph # (Auto) 0.98 L (1.18-3.74) K/mm3 Reynolds # (Auto) 0.80 H (0.24-0.36) K/mm3 Eos # (Auto) 0.10 (0.04-0.36) K/mm3 Baso # (Auto) 0.03 (0.01-0.08) K/mm3 Manual Slide Review Abnormal smear PT 10.6 (9.7-12.0) SECONDS INR 0.97 Puncture Site ABG pH (7.35-7.45) ABG pCO2 (35.0-45.0) mmHg ABG pO2 (80.0-100.0) mmHg ABG HCO3 (22.0-26.0) meq/L ABG O2 Saturation (96.0-97.0) % ABG Base Excess (-2-2.0) A-a Gradient mmHg O2 Delivery Device FiO2 (21.00-100.00) % Blood Gas Comments Sodium 130 L (136-145) mEq/L Potassium 4.1 (3.5-5.1) mEq/L Chloride 96 L (98-107) mEq/L Carbon Dioxide 25 (21-32) mEq/L Anion Gap 13.1 (5-15) BUN 9 (7-18) mg/dL Creatinine 0.7 (0.55-1.02) mg/dL Est Cr Clr Drug Dosing 44.51 mL/min Estimated GFR (MDRD) > 60 (>60) mL/min BUN/Creatinine Ratio 12.9 L (14-18) Glucose 131 H (83-115) mg/dL Serum Osmolality (280-300) mosm/kg Lactic Acid (0.4-2.0) mmol/L Calcium 8.9 (8.5-10.1) mg/dL Total Bilirubin 0.3 (0.2-1.0) mg/dL AST 21 (15-37) U/L ALT 39 (14-59) U/L Alkaline Phosphatase 79 (46-116) U/L Troponin I < 0.017 (0.00-0.056) ng/mL C-Reactive Protein 4.3 H* (<1.0) mg/dL NT-Pro-B Natriuret Pep (0-450) pg/mL Total Protein 6.8 (6.4-8.2) g/dl Albumin 2.5 L (3.4-5.0) g/dl Globulin 4.3 gm/dL Albumin/Globulin Ratio 0.6 L (1-2) TSH 3rd Generation 5.319 H (0.358-3.74) uIU/mL Urine Osmolality (400-1100) mosm/kg Ur Random Creatinine (30.0-125.0) mg/dL U Random Total Protein (0.0-11.8) mg/dL Ur Random Sodium (40-220) mEq/L Mycoplasma pneumon IgM (NEGATIVE) 01/25/19 01/25/19 01/25/19 Range/Units 08:28 08:28 08:28 WBC (3.98-10.04) K/mm3 RBC (3.98-5.22) M/mm3 Hgb (11.2-15.7) gm/dl Hct (34.1-44.9) % MCV (79.4-94.8) fl MCH (25.6-32.2) pg MCHC (32.2-35.5) g/dl RDW Std Deviation (36.4-46.3) fL Plt Count (182-369) K/mm3 MPV (9.4-12.3) fl Neut % (Auto) (34.0-71.1) % Lymph % (Auto) (19.3-51.7) % Reynolds % (Auto) (4.7-12.5) % Eos % (Auto) (0.7-5.8) Baso % (Auto) (0.1-1.2) % Neut # (Auto) (1.56-6.13) K/mm3 Lymph # (Auto) (1.18-3.74) K/mm3 Reynolds # (Auto) (0.24-0.36) K/mm3 Eos # (Auto) (0.04-0.36) K/mm3 Baso # (Auto) (0.01-0.08) K/mm3 Manual Slide Review PT (9.7-12.0) SECONDS INR Puncture Site ABG pH (7.35-7.45) ABG pCO2 (35.0-45.0) mmHg ABG pO2 (80.0-100.0) mmHg ABG HCO3 (22.0-26.0) meq/L ABG O2 Saturation (96.0-97.0) % ABG Base Excess (-2-2.0) A-a Gradient mmHg O2 Delivery Device FiO2 (21.00-100.00) % Blood Gas Comments Sodium (136-145) mEq/L Potassium (3.5-5.1) mEq/L Chloride (98-107) mEq/L Carbon Dioxide (21-32) mEq/L Anion Gap (5-15) BUN (7-18) mg/dL Creatinine (0.55-1.02) mg/dL Est Cr Clr Drug Dosing mL/min Estimated GFR (MDRD) (>60) mL/min BUN/Creatinine Ratio (14-18) Glucose (83-115) mg/dL Serum Osmolality 271 L (280-300) mosm/kg Lactic Acid (0.4-2.0) mmol/L Calcium (8.5-10.1) mg/dL Total Bilirubin (0.2-1.0) mg/dL AST (15-37) U/L ALT (14-59) U/L Alkaline Phosphatase (46-116) U/L Troponin I (0.00-0.056) ng/mL C-Reactive Protein (<1.0) mg/dL NT-Pro-B Natriuret Pep 389 (0-450) pg/mL Total Protein (6.4-8.2) g/dl Albumin (3.4-5.0) g/dl Globulin gm/dL Albumin/Globulin Ratio (1-2) TSH 3rd Generation (0.358-3.74) uIU/mL Urine Osmolality (400-1100) mosm/kg Ur Random Creatinine (30.0-125.0) mg/dL U Random Total Protein (0.0-11.8) mg/dL Ur Random Sodium (40-220) mEq/L Mycoplasma pneumon IgM Negative (NEGATIVE) 01/25/19 01/25/19 01/25/19 Range/Units 08:28 11:05 11:18 WBC (3.98-10.04) K/mm3 RBC (3.98-5.22) M/mm3 Hgb (11.2-15.7) gm/dl Hct (34.1-44.9) % MCV (79.4-94.8) fl MCH (25.6-32.2) pg MCHC (32.2-35.5) g/dl RDW Std Deviation (36.4-46.3) fL Plt Count (182-369) K/mm3 MPV (9.4-12.3) fl Neut % (Auto) (34.0-71.1) % Lymph % (Auto) (19.3-51.7) % Reynolds % (Auto) (4.7-12.5) % Eos % (Auto) (0.7-5.8) Baso % (Auto) (0.1-1.2) % Neut # (Auto) (1.56-6.13) K/mm3 Lymph # (Auto) (1.18-3.74) K/mm3 Reynolds # (Auto) (0.24-0.36) K/mm3 Eos # (Auto) (0.04-0.36) K/mm3 Baso # (Auto) (0.01-0.08) K/mm3 Manual Slide Review PT (9.7-12.0) SECONDS INR Puncture Site Rt radial ABG pH 7.44 (7.35-7.45) ABG pCO2 36.1 (35.0-45.0) mmHg ABG pO2 63.0 L (80.0-100.0) mmHg ABG HCO3 24.2 (22.0-26.0) meq/L ABG O2 Saturation 92.2 L (96.0-97.0) % ABG Base Excess 0.8 (-2-2.0) A-a Gradient 43 mmHg O2 Delivery Device Room air FiO2 21.00 (21.00-100.00) % Blood Gas Comments Pos Sodium (136-145) mEq/L Potassium (3.5-5.1) mEq/L Chloride (98-107) mEq/L Carbon Dioxide (21-32) mEq/L Anion Gap (5-15) BUN (7-18) mg/dL Creatinine (0.55-1.02) mg/dL Est Cr Clr Drug Dosing mL/min Estimated GFR (MDRD) (>60) mL/min BUN/Creatinine Ratio (14-18) Glucose (83-115) mg/dL Serum Osmolality (280-300) mosm/kg Lactic Acid 0.7 (0.4-2.0) mmol/L Calcium (8.5-10.1) mg/dL Total Bilirubin (0.2-1.0) mg/dL AST (15-37) U/L ALT (14-59) U/L Alkaline Phosphatase (46-116) U/L Troponin I (0.00-0.056) ng/mL C-Reactive Protein (<1.0) mg/dL NT-Pro-B Natriuret Pep (0-450) pg/mL Total Protein (6.4-8.2) g/dl Albumin (3.4-5.0) g/dl Globulin gm/dL Albumin/Globulin Ratio (1-2) TSH 3rd Generation (0.358-3.74) uIU/mL Urine Osmolality 333 L (400-1100) mosm/kg Ur Random Creatinine 27.9 L (30.0-125.0) mg/dL U Random Total Protein 8.3 (0.0-11.8) mg/dL Ur Random Sodium 98 (40-220) mEq/L Mycoplasma pneumon IgM (NEGATIVE) Meds: Medications Generic Name Dose Route Start Last Admin Trade Name Nakia PRN Reason Stop Dose Admin Acetaminophen 650 mg 01/25/19 13:06 Tylenol PO Q4H PRN Pain (Mild 1-3)/fever Albuterol/Ipratropium 3 ml 01/25/19 15:00 01/25/19 15:05 Duoneb 3.0-0.5 Mg/3 Ml NEB 3 ml Q6HRRT [facility] Administration Benzonatate 100 mg 01/25/19 13:06 Tessalon Perles PO TID PRN Cough Enoxaparin Sodium 40 mg 01/26/19 09:00 Lovenox SUBCUT DAILY [facility] Sodium Chloride 1,000 mls @ 999 mls/hr 01/25/19 09:45 01/25/19 09:43 Normal Saline IV 999 mls/hr ONETIME [facility] Administration Vancomycin HCl 1 gm/ Sodium 250 mls @ 250 mls/hr 01/25/19 15:00 01/25/19 16: 02 Chloride IV 250 mls/hr Q24H [facility] Administration Piperacillin Sod/Tazobactam 100 mls @ 25 mls/hr 01/25/19 22:00 Sod 4.5 gm/ Sodium Chloride IV Q8H [facility] Levofloxacin/Dextrose 750 mg/ 150 mls @ 100 mls/hr 01/27/19 12:30 Premix IV Q48H [facility] Sodium Chloride 10 ml 01/25/19 08:17 01/25/19 08:31 Saline Flush FLUSH 10 ml ASDIRECTED PRN Administration Keep Vein Open Vancomycin HCl 1 dose 01/25/19 13:15 Pharmacy To Dose - Vancomycin .XX ASDIRECTED [facility] Discontinued Medications Generic Name Dose Route Start Last Admin Trade Name Nakia PRN Reason Stop Dose Admin Ceftriaxone Sodium 1 gm/ 100 mls @ 200 mls/hr 01/25/19 11:00 01/25/19 11:48 Sodium Chloride IV 200 mls/hr Q24H [facility] Administration Levofloxacin/Dextrose 750 mg/ 150 mls @ 100 mls/hr 01/25/19 12:15 01/25/19 12 :21 Premix IV 02/01/19 12:16 100 mls/hr Q24H [facility] Administration Piperacillin Sod/Tazobactam 100 mls @ 25 mls/hr 01/25/19 13:15 Sod 4.5 gm/ Sodium Chloride IV Q6H [facility] Piperacillin Sod/Tazobactam 100 mls @ 200 mls/hr 01/25/19 14:00 01/25/19 15: 22 Sod 4.5 gm/ Sodium Chloride IV 01/25/19 14:29 200 mls/hr ONETIME ONE Administration - Re-Assessments/Exams Free Text/Narrative Re-Assessment/Exam: 01/25/19 10:57 Chest x-ray showed what appeared to be bilateral infiltrates. Not severe but definite change from her x-ray of a few years ago. Ask for radiology read on it , just got that a few minutes ago and he agrees calling this bilateral pneumonia. White blood count was mildly elevated at 10,500, C-reactive protein 4.5. He did fall asleep a short time ago and sats dropped down to 82 when sleeping were in the 89-91 range at time of my evaluation sitting in the bed partially upright at rest. She has failed outpatient therapy. She is showing relative hypoxia. We'll give one blood culture at this time, Cherner oxygen off , get ABGs and 15 minutes, start IV Rocephin and get her admitted for further treatment. 01/25/19 10:59 Departure - Departure Time of Disposition: 11:15 Disposition: Admitted As Inpatient 67 Condition: Fair Clinical Impression: Hypoxia Pneumonia Qualifiers: Pneumonia type: due to unspecified organism Laterality: bilateral Lung location : unspecified part of lung Qualified Code(s): J18.9 - Pneumonia, unspecified organism - Discharge Information Sepsis Event Note - Evaluation Sepsis Screening Result: Possible Sepsis Risk - Focused Exam Vital Signs: Vital Signs Temp Pulse Resp BP Pulse Ox Pulse Ox 01/25/19 10:15 82 L 01/25/19 07:57 97.7 F 91 21 H 142/93 H 91 L Date Exam was Performed: 01/25/19 Time Exam was Performed: 18:40 ED Communication - Discussed Case With (1) Discussed Case With (1): Admitting Provider (Discussed with Dr Red, decision to admit at about 12:00) - My Orders Last 24 Hours: My Active Orders 01/25/19 08:17 Sodium Chloride 0.9% [Saline Flush] 10 ml FLUSH ASDIRECTED PRN Peripheral IV Insertion Adult [OM.PC] Stat 01/25/19 08:28 PROCALCITONIN [REF] Stat 01/25/19 09:45 Sodium Chloride 0.9% [Normal Saline] 1,000 ml IV ONETIME 01/25/19 11:05 CULTURE BLOOD [BC] Stat - Assessment/Plan Last 24 Hours: My Active Orders 01/25/19 08:17 Sodium Chloride 0.9% [Saline Flush] 10 ml FLUSH ASDIRECTED PRN Peripheral IV Insertion Adult [OM.PC] Stat 01/25/19 08:28 PROCALCITONIN [REF] Stat 01/25/19 09:45 Sodium Chloride 0.9% [Normal Saline] 1,000 ml IV ONETIME 01/25/19 11:05 CULTURE BLOOD [BC] Stat
[2019-01-25] MEDS ORDERED: Sodium Chloride 0.9% 10 ML Syringe FLUSH PRN (08:17)
[2019-01-25] MEDS ORDERED: Sodium Chloride 0.9% 1,000 ML IV SCH (09:45)
--- NOTE | 2019-01-25 10:22 | CR ---
Chest: Two views of the chest were obtained. Comparison: Prior chest x-ray of 12/11/15. Increased density seen within both sides of the chest. Findings most likely represent pneumonia. Heart size is not enlarged. Tortuous thoracic aorta is seen. Previous right shoulder surgery is noted. Impression: 1. Increased density within both sides of the chest most likely representing areas of pneumonia. Recommend follow-up chest x-ray after clinical therapy is complete to make sure findings resolve. 2. Other findings believed to be incidental and nonacute. Diagnostic code #3 This report was dictated in [place] Standard Time
[2019-01-25] MEDS ORDERED: cefTRIAXone 1 GM in Sodium Chloride 0.9% 100 ML IV SCH (11:00)
[2019-01-25] MEDS ORDERED: Levofloxacin/Dextrose 5%-Water 750 MG in Premix Bag 1 BAG IV SCH (12:15)
[2019-01-25] MEDS ORDERED: Benzonatate 100 MG Cap PO PRN (13:06)
[2019-01-25] MEDS ORDERED: Acetaminophen 325 MG Tab PO PRN (13:06)
[2019-01-25] MEDS ORDERED: Piperacillin/Tazobactam 4.5 GM in Sodium Chloride 0.9% 100 ML IV SCH (13:15)
[2019-01-25] MEDS ORDERED: Piperacillin/Tazobactam 4.5 GM in Sodium Chloride 0.9% 100 ML IV ONE (14:00)
[2019-01-25] MEDS: Albuterol/Ipratropium 3.0-0.5 MG/3 ML Neb Soln NEB SCH ×2 (15:05→20:31)
--- NOTE | 2019-01-25 16:44 | PCM.HP.2 ---
H&P History of Present Illness - General Date of Service: 01/25/19 Admit Problem/Dx: Admission Diagnosis/Problem Admission Diagnosis/Problem Pneumonia - History of Present Illness Initial Comments - Free Text/Narative: This is a 83 year old female with past medical history of hypertension and hypothyroidism who comes to the ED complaining of worsening pneumonia. As per patient she started feeling malaise and fatigue approximately 3 weeks ago for which she went to PCP for evaluation who diagnosed her with BL pneumonia and prescribed 2 antibiotics, she completed the allotted days but symptoms did not improve. She continued to have decreased appetite, weakness and malaise as well as little cough which was intermittently productive of white sputum. She has also been having SOB, PHELPS and diarrhea. She denies diaphoresis,c hills, fever, chest pain, palpitations, edema of upper of lower extremities, changes in urine, abdominal pain, numbness or tingling, headaches. - Related Data Allergies/Adverse Reactions: Allergies Allergy/AdvReac Type Severity Reaction Status Date / Time No Known Allergies Allergy Verified 01/25/19 08:01 Home Medications: Home Meds Levothyroxine [Synthroid] 50 mcg PO DAILY 01/08/16 [History] Aspirin 81 mg PO DAILY 10/06/18 [History] Calcium Carb, Citrate/Vit D3 [Calcium + D3 ER Tablet] 500 mg PO BID 10/06/18 [ History] Sertraline [Zoloft] 25 mg PO DAILY 01/04/19 [History] Simvastatin 20 mg PO DAILY 01/04/19 [History] ALPRAZolam [Xanax] 0.25 mg PO DAILY PRN 01/15/19 [History] Baclofen 10 mg PO TID 01/15/19 [History] LORazepam [Ativan] 0.5 mg PO ASDIRECTED 01/15/19 [History] Potassium Chloride 20 meq PO Q48H 01/15/19 [History] traMADol [Ultram] 50 mg PO BID 01/15/19 [History] Acetaminophen/HYDROcodone [Reeder 325-5 MG] 1 tab PO BID PRN 01/25/19 [History] Cholecalciferol (Vitamin D3) [Vitamin D3] 1,000 unit PO DAILY 01/25/19 [History] Enalapril [Vasotec] 5 mg PO DAILY 01/25/19 [History] Past Medical History HEENT History: Reports: Cataract Other HEENT History: wears glasses Cardiovascular History: Reports: High Cholesterol, Hypertension [employer] History: Reports: , Spontaneous Other OB/BYN History: x4 Musculoskeletal History: Reports: Arthritis Neurological History: Reports: None Psychiatric History: Reports: Anxiety Endocrine/Metabolic History: Reports: Hypothyroidism - Infectious Disease History Infectious Disease History: Reports: Measles - Past Surgical History HEENT Surgical History: Reports: Cataract Surgery Musculoskeletal Surgical History: Reports: Arthroscopic Knee, Shoulder Surgery, Other (See Below) Other Musculoskeletal Surgeries/Procedures:: R shoulder. Recent fall with fx to knee, shoulde r and R wrist; back sx Social & Family History - Family History Family Medical History: Noncontributory - Tobacco Use Smoking Status *Q: Never Smoker - Caffeine Use Caffeine Use: Reports: Coffee Other Caffeine Use: 2/day Caffeine Use Comment: Drinks about 2 cups of coffee daily - Recreational Drug Use Recreational Drug Use: No H&P Review of Systems - Review of Systems: Review Of Systems: See Below General: Reports: Malaise, Weakness, Fatigue, Decreased Appetite. Denies: Fever , Chills, Night Sweats, Diaphoresis, Weight Loss, Weight Gain HEENT: Denies: Dysphasia, Ear Pain, Eye Pain, Headaches, Hearing Changes, Rhinitis, Post Nasal Drip, Sinus Congestion, Sore Throat, Vertigo, Visual Changes Pulmonary: Reports: Shortness of Breath, Wheezing, Cough, Sputum. Denies: Pleuritic Chest Pain, Hemoptysis Cardiovascular: Reports: Dyspnea on Exertion. Denies: Chest Pain, Palpitations , Orthopnea, PND, Lightheadedness, Claudication Gastrointestinal: Reports: Diarrhea, Decreased Appetite, Nausea. Denies: Abdominal Pain, Anorexia, Black Stool, Bloody Stool, Constipation, Difficulty Swallowing, Distension, Flatus, Hematemesis, Vomiting Genitourinary: Denies: Dysuria, Frequency, Burning, Pain, Urgency, Incontinence Musculoskeletal: Denies: Neck Pain, Shoulder Pain, Arm Pain, Back Pain, Hand Pain, Joint Pain, Joint Swelling, Muscle Pain, Muscle Stiffness Skin: Denies: Cyanosis, Jaundice, Mottled, Pallor, Diaphoresis, Dryness, Bruising, Pruritis, Rash, Erythema, Wound Psychiatric: Denies: Confusion, Depression, Mood Lability, Anxiety, Agitation Neurological: Denies: Confusion, Dizziness, Headache, Numbness, Paresthesia, Pre -Existing Deficit, Seizure, Syncope, Tingling, Tremors Hematologic/Lymphatic: Denies: Anemia, Easy Bleeding, Easy Bruising Immunologic: Denies: Anaphylaxis, Food Allergy Exam - Exam Exam: See Below - Vital Signs Vital Signs: Last Vital Signs Temp 97.7 F 01/25/19 07:57 Pulse 91 01/25/19 07:57 Resp 21 H 01/25/19 07:57 BP 138/72 01/25/19 14:03 Pulse Ox 97 01/25/19 15:05 Weight: 61.689 kg - Exam Quality Assessment: Supplemental Oxygen General: Alert, Oriented, Cooperative. No: Mild Distress HEENT: Conjunctiva Clear, EACs Clear, EOMI, Mucosa Moist & [place], Nares Patent Neck: Supple, Trachea Midline, Full Range of Motion. No: Lymphadenopathy Lungs: Normal Respiratory Effort, Crackles. No: Rhonchi, Rub, Stridor, Wheezing Cardiovascular: Regular Rate, Regular Rhythm. No: Systolic Murmur, Diastolic Murmur, Rubs, Gallop/S3, Gallop/S4 GI/Abdominal Exam: Normal Bowel Sounds, Soft, Non-Tender, No Organomegaly, No Distention Back Exam: Normal Inspection. No: CVA Tenderness (L), CVA Tenderness (R) Extremities: Normal Inspection, Normal Range of Motion, No Pedal Edema, Normal Capillary Refill Skin: Warm, Dry Neurological: Cranial Nerves Intact Neuro Extensive - Mental Status: Alert Psychiatric: Normal Affect, Normal Mood - Patient Data Result Diagrams: 01/25/19 08:28 01/25/19 08:28 Sepsis Event Note - Evaluation Sepsis Screening Result: Possible Sepsis Risk - Focused Exam Vital Signs: Vital Signs Temp Pulse Resp BP Pulse Ox Pulse Ox 01/25/19 15:05 97 01/25/19 14:03 138/72 01/25/19 10:15 82 L 01/25/19 07:57 97.7 F 91 21 H 142/93 H 91 L Date Exam was Performed: 01/25/19 Time Exam was Performed: 17:04 - Problem List (1) Bilateral pneumonia SNOMED Code(s): 374337063 ICD Code: J18.9 - PNEUMONIA, UNSPECIFIED ORGANISM Status: Acute Current Visit: Yes (2) Thrombocytosis SNOMED Code(s): 8893639 ICD Code: D47.3 - ESSENTIAL (HEMORRHAGIC) THROMBOCYTHEMIA Status: Acute Current Visit: Yes (3) Chronic kidney disease (CKD), stage III (moderate) SNOMED Code(s): 939711124 ICD Code: N18.3 - CHRONIC KIDNEY DISEASE, STAGE 3 (MODERATE) Status: Acute Current Visit: Yes (4) Hypoalbuminemia SNOMED Code(s): 210892513 ICD Code: E88.09 - OTH DISORDERS OF PLASMA-PROTEIN METABOLISM, NEC Status: Acute Current Visit: Yes (5) Hypertension SNOMED Code(s): 22277070 ICD Code: I10 - ESSENTIAL (PRIMARY) HYPERTENSION Status: Acute Current Visit: Yes (6) Hypothyroidism SNOMED Code(s): 53675497 ICD Code: E03.9 - HYPOTHYROIDISM, UNSPECIFIED Status: Acute Current Visit : Yes (7) Hypoxia SNOMED Code(s): 574114085 ICD Code: R09.02 - HYPOXEMIA Status: Acute Current Visit: Yes (8) Hyponatremia SNOMED Code(s): 04603674 ICD Code: E87.1 - HYPO-OSMOLALITY AND HYPONATREMIA Status: Acute Priority : Medium Current Visit: No (9) Healthcare-associated pneumonia SNOMED Code(s): 058811377, 260715021 ICD Code: J18.9 - PNEUMONIA, UNSPECIFIED ORGANISM Status: Acute Current Visit: Yes Problem List Initiated/Reviewed/Updated: Yes Assessment/Plan Comment:: (1) Hypoxia Diagnosed 3 weeks ago, completed treatment with cefdinir and unknown antibiotic SatO2 82% on RA on admission Clinically patient has crackles starting at mid-lung guy Chest x ray without significant improvement from 01/16 Multiple ER visits PLAN - Start vancomycin, Levaquin and Zosyn - Strep pneumonia serology - Respiratory panel - Mycoplasma serology - Influenza swab - Scheduled DuoNebs - Incentive spirometry - As needed Charity Thomas - Request records Thrombocytosis Likely reactive Previous levels earlier this month are normal PLAN - Repeat CBC in the AM Chronic kidney disease (CKD), stage III (moderate) Hyponatremia Decreased oral intake As per patient she has had significant decrease in oral intake Likely volume depleted PLAN - Orthostatic VS - NS - Urine electrolytes and osmolality - Serum osmolality Hypertension BP on admission 142/93 Home management with enalapril PLAN - Continue home meds once stable - PRN Hydralazine Hypothyroidism No acute issues PLAN - Continue home medications Hypoalbuminemia Acute on chronic deconditioning Severely decreased oral intake since she got sick earlier in January PLAN - Prealbumin - Dietary consult and evaluation - PT/ OT evaluation and recommendations PROPHYLAXIS: DVT- Lovenox GI- not indicated CODE STATUS: FULL CODE DISPOSITION: Patient will be admitted for scheduled nebulizations, RT evaluation and treatment as well as triple ATB coverage for HAP. Lives by herself in [facility] Completely independent on ADLs and IADLs
[2019-01-25] MEDS: Piperacillin/Tazobactam 4.5 GM in Sodium Chloride 0.9% 100 ML IV SCH (21:24)
[2019-01-26] MEDS: Albuterol/Ipratropium 3.0-0.5 MG/3 ML Neb Soln NEB SCH ×4 (03:16→20:28)
[2019-01-26] MEDS: Piperacillin/Tazobactam 4.5 GM in Sodium Chloride 0.9% 100 ML IV SCH ×3 (06:26→22:31)
[2019-01-26] MEDS ORDERED: Ondansetron 4 MG/2 ML SDV IVPUSH PRN (08:35)
[2019-01-26] MEDS: Enoxaparin 40 MG/0.4 ML Syringe SUBCUT SCH (08:49)
--- NOTE | 2019-01-26 09:40 | PCM.PN ---
- General Info Date of Service: 01/26/19 Subjective Update: slept ok Tolerating diet 1L NC today - Patient Data Vitals - Most Recent: Last Vital Signs Temp 98.1 F 01/26/19 07:28 Pulse 77 01/26/19 07:28 Resp 20 01/26/19 07:28 BP 133/74 01/26/19 07:28 Pulse Ox 92 L 01/26/19 07:28 Weight - Most Recent: 59.103 kg - Exam Quality Assessment: Supplemental Oxygen General: Alert, Oriented, Cooperative, No Acute Distress HEENT: Pupils Equal, Pupils Reactive, EOMI, Mucous Membr. Moist/[place] Neck: Supple, Trachea Midline, No Thyromegaly Lungs: Decreased Breath Sounds, Crackles. No: Rales, Rhonchi, Rub, Wheezing Cardiovascular: Regular Rate, Regular Rhythm. No: Murmurs, Gallops, Rubs GI/Abdominal Exam: Normal Bowel Sounds, Soft, Non-Tender, No Organomegaly, No Distention. No: Distended, Guarding, Rigid, Rebound Back Exam: Normal Inspection Extremities: Normal Inspection, Normal Range of Motion, Normal Capillary Refill. No: Pedal Edema Neurological: No New Focal Deficit Psy/Mental Status: Alert Sepsis Event Note - Evaluation Sepsis Screening Result: No Definite Risk - Focused Exam Vital Signs: Vital Signs Temp Pulse Resp BP Pulse Ox Pulse Ox 01/26/19 07:28 98.1 F 77 20 133/74 92 L 01/26/19 03:42 98.2 F 86 16 131/60 92 L 01/26/19 03:16 96 01/26/19 00:28 98.1 F 76 16 140/74 95 Date Exam was Performed: 01/27/19 Time Exam was Performed: 10:48 - Problem List & Annotations (1) Bilateral pneumonia SNOMED Code(s): 642728805 Code(s): J18.9 - PNEUMONIA, UNSPECIFIED ORGANISM Status: Acute Current Visit: Yes (2) Thrombocytosis SNOMED Code(s): 3793415 Code(s): D47.3 - ESSENTIAL (HEMORRHAGIC) THROMBOCYTHEMIA Status: Acute Current Visit: Yes (3) Chronic kidney disease (CKD), stage III (moderate) SNOMED Code(s): 774663290 Code(s): N18.3 - CHRONIC KIDNEY DISEASE, STAGE 3 (MODERATE) Status: Acute Current Visit: Yes (4) Hypoalbuminemia SNOMED Code(s): 644586383 Code(s): E88.09 - OTH DISORDERS OF PLASMA-PROTEIN METABOLISM, NEC Status: Acute Current Visit: Yes (5) Hypertension SNOMED Code(s): 59133528 Code(s): I10 - ESSENTIAL (PRIMARY) HYPERTENSION Status: Acute Current Visit: Yes (6) Hypothyroidism SNOMED Code(s): 07837663 Code(s): E03.9 - HYPOTHYROIDISM, UNSPECIFIED Status: Acute Current Visit : Yes (7) Hypoxia SNOMED Code(s): 627744294 Code(s): R09.02 - HYPOXEMIA Status: Acute Current Visit: Yes (8) Hyponatremia SNOMED Code(s): 87874506 Code(s): E87.1 - HYPO-OSMOLALITY AND HYPONATREMIA Status: Acute Priority : Medium Current Visit: No (9) Healthcare-associated pneumonia SNOMED Code(s): 303488430, 266524328 Code(s): J18.9 - PNEUMONIA, UNSPECIFIED ORGANISM Status: Acute Current Visit: Yes - Problem List Review Problem List Initiated/Reviewed/Updated: Yes - Plan Plan:: (1) Hypoxia Diagnosed 3 weeks ago, completed treatment with cefdinir and unknown antibiotic SatO2 82% on RA on admission Clinically patient has crackles starting at mid-lung guy Chest x ray without significant improvement from 01/16 Multiple ER visits Mycoplasma, strep pneumo, flu swab negative PLAN - Continue vancomycin, Levaquin and Zosyn - Respiratory panel - Scheduled DuoNebs - Incentive spirometry - As needed Charity Thomas - Request records Thrombocytosis Likely reactive Previous levels earlier this month are normal PLAN - Repeat CBC in the AM Chronic kidney disease (CKD), stage III (moderate) Hyponatremia Decreased oral intake As per patient she has had significant decrease in oral intake Likely volume depleted PLAN - Orthostatic VS - NS - Urine electrolytes and osmolality - Serum osmolality Hypertension BP on admission 142/93 Home management with enalapril PLAN - Continue home meds once stable - PRN Hydralazine Hypothyroidism No acute issues PLAN - Continue home medications Hypoalbuminemia Acute on chronic deconditioning Severely decreased oral intake since she got sick earlier in January PLAN - Prealbumin - Dietary consult and evaluation - PT/ OT evaluation and recommendations PROPHYLAXIS: DVT- Lovenox GI- not indicated CODE STATUS: FULL CODE DISPOSITION: Patient will be admitted for scheduled nebulizations, RT evaluation and treatment as well as triple ATB coverage for HAP. Lives by herself in [facility] Completely independent on ADLs and IADLs
[2019-01-27] MEDS: Levothyroxine 50 MCG Tab PO SCH (06:46)
[2019-01-27] MEDS: Enoxaparin 40 MG/0.4 ML Syringe SUBCUT SCH (08:55)
[2019-01-27] MEDS: Sertraline 25 MG Tab PO SCH (08:55)
[2019-01-27] MEDS ORDERED: Iopamidol 612 MG/ML 100 ML Bottle IVPUSH ONE (10:34)
--- NOTE | 2019-01-27 10:44 | CR ---
Chest: 2 views of the chest were obtained. Comparison: Prior chest x-ray of 01/25/19. Heart size is normal. Tortuous thoracic aorta is seen. Patchy areas of increased density within both sides of the chest which remains stable from prior chest x-ray. No acute findings are seen within either lung from prior chest x-ray. Previous right shoulder surgery is seen. Mild degenerative change is noted within the spine. Impression: 1. Findings as noted above. 2. No change is appreciated from prior chest x-ray of 01/25/19. Diagnostic code #3 This report was dictated in [place] Standard Time
--- NOTE | 2019-01-27 10:52 | PCM.PN ---
- General Info Date of Service: 01/27/19 Subjective Update: Tolerating diet Slept ok Feeling a lot better - Patient Data Vitals - Most Recent: Last Vital Signs Temp 97.9 F 01/27/19 08:59 Pulse 79 01/27/19 08:59 Resp 16 01/27/19 08:59 BP 113/58 L 01/27/19 08:59 Pulse Ox 93 L 01/27/19 08:59 Weight - Most Recent: 59.103 kg - Exam Quality Assessment: Supplemental Oxygen General: Alert, Oriented, Cooperative, No Acute Distress HEENT: Pupils Equal, Pupils Reactive, EOMI, Mucous Membr. Moist/[place] Neck: Supple, Trachea Midline, No JVD Lungs: Clear to Auscultation, Decreased Breath Sounds, Crackles. No: Rales, Rhonchi, Rub, Stridor, Wheezing Cardiovascular: Regular Rate, Regular Rhythm, No Murmurs. No: Gallops, Rubs GI/Abdominal Exam: Normal Bowel Sounds, Soft, Non-Tender, No Organomegaly Back Exam: Normal Inspection. No: CVA Tenderness (L), CVA Tenderness (R) Extremities: Normal Inspection, Normal Range of Motion, Non-Tender, No Pedal Edema, Normal Capillary Refill Neurological: No New Focal Deficit Psy/Mental Status: Alert, Normal Affect Sepsis Event Note - Evaluation Sepsis Screening Result: No Definite Risk - Focused Exam Vital Signs: Vital Signs Temp Pulse Resp BP Pulse Ox 01/27/19 08:59 97.9 F 79 16 113/58 L 93 L 01/27/19 08:00 93 L 01/27/19 07:28 71 95 01/27/19 02:18 98.1 F 93 18 132/71 93 L Date Exam was Performed: 01/29/19 Time Exam was Performed: 10:58 - Problem List & Annotations (1) Bilateral pneumonia SNOMED Code(s): 379177817 Code(s): J18.9 - PNEUMONIA, UNSPECIFIED ORGANISM Status: Ruled-out Current Visit: Yes (2) Thrombocytosis SNOMED Code(s): 0660128 Code(s): D47.3 - ESSENTIAL (HEMORRHAGIC) THROMBOCYTHEMIA Status: Acute Current Visit: Yes (3) Chronic kidney disease (CKD), stage III (moderate) SNOMED Code(s): 859312979 Code(s): N18.3 - CHRONIC KIDNEY DISEASE, STAGE 3 (MODERATE) Status: Acute Current Visit: Yes (4) Hypoalbuminemia SNOMED Code(s): 253955919 Code(s): E88.09 - OTH DISORDERS OF PLASMA-PROTEIN METABOLISM, NEC Status: Acute Current Visit: Yes (5) Hypertension SNOMED Code(s): 58245149 Code(s): I10 - ESSENTIAL (PRIMARY) HYPERTENSION Status: Acute Current Visit: Yes (6) Hypothyroidism SNOMED Code(s): 18798982 Code(s): E03.9 - HYPOTHYROIDISM, UNSPECIFIED Status: Acute Current Visit : Yes (7) Hypoxia SNOMED Code(s): 410923959 Code(s): R09.02 - HYPOXEMIA Status: Acute Current Visit: Yes (8) Hyponatremia SNOMED Code(s): 39613482 Code(s): E87.1 - HYPO-OSMOLALITY AND HYPONATREMIA Status: Acute Priority : Medium Current Visit: No (9) Healthcare-associated pneumonia SNOMED Code(s): 837032636, 774268321 Code(s): J18.9 - PNEUMONIA, UNSPECIFIED ORGANISM Status: Acute Current Visit: Yes (10) Disorder of lung parenchyma SNOMED Code(s): 71228626 Code(s): J98.4 - OTHER DISORDERS OF LUNG Status: Acute Current Visit: Yes - Problem List Review Problem List Initiated/Reviewed/Updated: Yes - Plan Plan:: Hypoxia Diagnosed 3 weeks ago, completed treatment with cefdinir and unknown antibiotic SatO2 82% on RA on admission Clinically patient has crackles starting at mid-lung guy Chest x ray without significant improvement from 01/16 Multiple ER visits Mycoplasma, strep pneumo, flu swab negative PLAN - Discontinue vancomycin, Levaquin and Zosyn - Incentive spirometry - As needed Charity Thomas - CT chest Thrombocytosis, improving Likely reactive Previous levels earlier this month are normal PLAN - Repeat CBC in the AM Chronic kidney disease (CKD), stage III (moderate) Hyponatremia Decreased oral intake As per patient she has had significant decrease in oral intake Likely volume depleted PLAN - Monitor urine output - Renally dosed medications - Avoid nephrotoxic medications as much as possible - Repeat labs Hypertension BP on admission 106-140/58-74 Home management with enalapril PLAN - Amlodipine - PRN Hydralazine Hypothyroidism No acute issues PLAN - Continue home medications Hypoalbuminemia Acute on chronic deconditioning Severely decreased oral intake since she got sick earlier in January PLAN - Prealbumin - Dietary consult and evaluation - PT/ OT evaluation and recommendations Acute pneumonia, ruled out PROPHYLAXIS: DVT- Lovenox GI- not indicated CODE STATUS: FULL CODE DISPOSITION: Patient admitted for scheduled nebulizations, RT evaluation and treatment as well as triple ATB coverage for HAP which was ruled out today. Pending CT chest in AM to evaluate lung parenchyma. [facility] by herself in [facility] Completely independent on ADLs and IADLs
[2019-01-27] MEDS ORDERED: Sodium Chloride 0.9% 100 ML IV ONE (11:10)
[2019-01-27] MEDS ORDERED: Iopamidol 755 Mg/ML 100 ML Bottle IVPUSH ONE (11:10)
--- NOTE | 2019-01-27 11:54 | CT ---
CT chest Technique: Multiple axial sections through the chest were obtained. Intravenous contrast was utilized. Study has been performed as a pulmonary angiogram protocol. Comparison: Previous chest x-ray performed earlier on same day (0 9:18 AM). Findings: Pulmonary arteries are well opacified. No filling defects are seen to indicate pulmonary embolism. Aorta shows mild atherosclerotic calcification without aneurysm. No pericardial thickening is seen. Small mediastinal lymph nodes are seen which are believed to be within normal limits. No axillary adenopathy is seen. Multiple cysts are seen within the liver. No cysts are seen within the visualized kidneys. Patchy parenchymal densities are seen within both lungs correlating to findings on chest x-ray. These findings are nonspecific and could represent typical or atypical pneumonia. Findings could also represent interval appearance of patchy areas of fibrosis from aspiration or other etiologies as an interval change from more remote chest x-ray of 12/11/15 (these findings are not seen at that time). Impression: 1. No findings of pulmonary embolism. 2. Multiple cysts within the liver. 3. Patchy parenchymal densities correlating to chest x-ray. Please see above for further discussion. Diagnostic code #3 This report was dictated in [place] Standard Time
[2019-01-27] MEDS ORDERED: Levofloxacin/Dextrose 5%-Water 750 MG in Premix Bag 1 BAG IV SCH (12:30)
[2019-01-28] MEDS: Levothyroxine 50 MCG Tab PO SCH (06:53)
[2019-01-28] MEDS: Enoxaparin 40 MG/0.4 ML Syringe SUBCUT SCH (08:50)
[2019-01-28] MEDS: Sertraline 25 MG Tab PO SCH (08:50)
[2019-01-29] MEDS: Levothyroxine 50 MCG Tab PO SCH (06:58)
[2019-01-29] MEDS: Sertraline 25 MG Tab PO SCH (08:48)
[2019-01-29] MEDS: Enoxaparin 40 MG/0.4 ML Syringe SUBCUT SCH (08:48)
--- NOTE | 2019-01-29 09:30 | PCM.PN ---
- General Info Date of Service: 01/28/19 Subjective Update: Feels better BM this am Eating better Ambulating - Patient Data Vitals - Most Recent: Last Vital Signs Temp 97.3 F 01/29/19 07:49 Pulse 69 01/29/19 07:49 Resp 20 01/29/19 07:49 BP 114/75 01/29/19 07:49 Pulse Ox 93 L 01/29/19 07:49 Weight - Most Recent: 59.285 kg - Exam General: Alert, Oriented, Cooperative, No Acute Distress HEENT: Pupils Equal, Pupils Reactive, EOMI, Mucous Membr. Moist/[place] Neck: Supple, Trachea Midline, No JVD, No Thyromegaly, +2 Carotid Pulse wo Bruit Lungs: Clear to Auscultation, Normal Respiratory Effort, Crackles. No: Rales, Rhonchi, Rub, Stridor, Wheezing Cardiovascular: Regular Rate, Regular Rhythm, Murmurs. No: Gallops, Rubs GI/Abdominal Exam: Normal Bowel Sounds, Soft, Non-Tender, No Organomegaly Back Exam: Normal Inspection. No: CVA Tenderness (L), CVA Tenderness (R) Extremities: Normal Inspection, Normal Range of Motion Wound/Incisions: Healing Well Neurological: No New Focal Deficit Sepsis Event Note - Evaluation Sepsis Screening Result: No Definite Risk - Focused Exam Vital Signs: Vital Signs Temp Pulse Resp BP Pulse Ox 01/29/19 07:49 97.3 F 69 20 114/75 93 L 01/29/19 02:13 98.8 F 66 12 145/88 H 92 L Date Exam was Performed: 01/29/19 Time Exam was Performed: 11:09 - Problem List & Annotations (1) Bilateral pneumonia SNOMED Code(s): 741768597 Code(s): J18.9 - PNEUMONIA, UNSPECIFIED ORGANISM Status: Ruled-out Current Visit: Yes (2) Thrombocytosis SNOMED Code(s): 2545230 Code(s): D47.3 - ESSENTIAL (HEMORRHAGIC) THROMBOCYTHEMIA Status: Acute Current Visit: Yes (3) Chronic kidney disease (CKD), stage III (moderate) SNOMED Code(s): 572395203 Code(s): N18.3 - CHRONIC KIDNEY DISEASE, STAGE 3 (MODERATE) Status: Acute Current Visit: Yes (4) Hypoalbuminemia SNOMED Code(s): 056040974 Code(s): E88.09 - OTH DISORDERS OF PLASMA-PROTEIN METABOLISM, NEC Status: Acute Current Visit: Yes (5) Hypertension SNOMED Code(s): 24235272 Code(s): I10 - ESSENTIAL (PRIMARY) HYPERTENSION Status: Acute Current Visit: Yes (6) Hypothyroidism SNOMED Code(s): 18663847 Code(s): E03.9 - HYPOTHYROIDISM, UNSPECIFIED Status: Acute Current Visit : Yes (7) Hypoxia SNOMED Code(s): 246749206 Code(s): R09.02 - HYPOXEMIA Status: Acute Current Visit: Yes (8) Hyponatremia SNOMED Code(s): 35689373 Code(s): E87.1 - HYPO-OSMOLALITY AND HYPONATREMIA Status: Acute Priority : Medium Current Visit: No (9) Healthcare-associated pneumonia SNOMED Code(s): 744886775, 425365133 Code(s): J18.9 - PNEUMONIA, UNSPECIFIED ORGANISM Status: Ruled-out Current Visit: Yes - Problem List Review Problem List Initiated/Reviewed/Updated: Yes - Plan Plan:: Parenchymal lung disease Diagnosed 3 weeks ago, completed treatment with cefdinir and unknown antibiotic + Clinically patient has crackles starting at mid-lung guy+ SatO2 89% on RA on admission+ Chest x ray without significant improvement from 01/16 + Multiple ER visits Negative procalcitonin, RSV panel, strep pneumo and mycoplasma antigens--> D/C ATB CT chest with multiple parenchymal lesions from resolving pneumonia and possible interstitial disease Off oxygen supplementation PLAN - Incentive spirometry - As needed Charity Thomas Chronic kidney disease (CKD), stage III (moderate) Decreased oral intake on admission--> volume depleted Improved intake since admission PLAN - Monitor urine output - Renally dosed medications - Avoid nephrotoxic medications as much as possible - Repeat labs Hypertension, controlled BP trend 106-140/58-74 Home management with enalapril PLAN - Amlodipine - PRN Hydralazine Hypothyroidism No acute issues PLAN - Continue home medications Hypoalbuminemia Acute on chronic deconditioning Severely decreased oral intake since she got sick earlier in January PLAN - Prealbumin - Dietary consult and evaluation - PT/ OT evaluation and recommendations Acute pneumonia, ruled out Hyponatremia, resolved Thrombocytosis, resolved PROPHYLAXIS: DVT- Lovenox GI- not indicated CODE STATUS: FULL CODE DISPOSITION: Patient admitted for PNA treatment, pneumonia was ruled out. CT chest with parenchymal disease. Patient clinically improving. Likely will be discharged in AM. Lives by herself in [facility] Completely independent on ADLs and IADLs
[2019-01-29 12:18] VITALS: BP 134/77; PULSE 75
== END 2019-01-29 15:08 | disposition home or self-care (01) | DRG 194 ==
LOC: JD.ED 07:49 → JD.MS 13:06
PROVIDERS: ADMIT Internal Medicine; ATTEND Internal Medicine
DX: J18.9 Pneumonia, unspecified organism (principal); R09.02 Hypoxemia; H54.7 Unspecified visual loss; E78.00 Pure hypercholesterolemia, unspecified; I10 Essential (primary) hypertension; M19.90 Unspecified osteoarthritis, unspecified site; E87.1 Hypo-osmolality and hyponatremia; D47.3 Essential (hemorrhagic) thrombocythemia; N18.3 Chronic kidney disease, stage 3 (moderate); E88.09 Other disorders of plasma-protein metabolism, not elsewhere classified; E03.9 Hypothyroidism, unspecified; I12.9 Hypertensive chronic kidney disease with stage 1 through stage 4 chronic kidney disease, or unspecified chronic kidney disease; F41.9 Anxiety disorder, unspecified; Z79.890 Hormone replacement therapy; Z79.82 Long term (current) use of aspirin; Z79.899 Other long term (current) drug therapy; Z98.49 Cataract extraction status, unspecified eye
CPT/HCPCS: 36415; 36600; 71046; 80053; 82570; 82803; 83605; 83880; 83930; 83935; 84145; 84156; 84300; 84443; 84484; 85025; 85610; 86140; 86738; 87040; 93005; 96361; 96365; 96367; 99285; J0696; J1956; J7030; J7050; 71275; 71275-26; 80048; 83735; 84100; 84134; 87486; 87581; 87632; 87798; 87804; 87899; 93010; 94640; 94667; 94668; 94760; 94761; 97110-GP; 97116-GP; 97161-GP; 97165-GO; 97530-GP; 99283; A9270-GY; J1650; J2405; J2543; J3370; J7620-GY; Q9967

== ENCOUNTER 2022-03-26 15:15 | Emergency (ER) | payer MEDICARE, OTHER ==
[2022-03-26 15:33] VITALS: BP 178/86; PULSE 66
[2022-03-26] MEDS ORDERED: fentaNYL 100 MCG/2 ML SDV IM ONE (15:38)
[2022-03-26] MEDS ORDERED: oxyCODONE 5 MG Tab PO ONE (15:39)
[2022-03-26] MEDS ORDERED: Ondansetron 4 MG Tab.DIS PO ONE (15:43)
== END 2022-03-26 16:04 | disposition home or self-care (01) ==
LOC: JD.ED 15:15
DX: H57.12 Ocular pain, left eye (principal); E78.00 Pure hypercholesterolemia, unspecified; I10 Essential (primary) hypertension; E03.9 Hypothyroidism, unspecified; Z79.899 Other long term (current) drug therapy
CPT/HCPCS: 96372; 99283; A9270; J3010; 99282

== ENCOUNTER 2022-12-01 07:06 | Emergency (ER) | payer MEDICARE, OTHER ==
[2022-12-01] MEDS ORDERED: Sodium Chloride 0.9% 10 ML Syringe FLUSH PRN (07:24)
[2022-12-01] MEDS ORDERED: methylPREDNISolone Sodium Succinate 40 MG/1 ML SDV IVPUSH ONE (07:25)
[2022-12-01] MEDS ORDERED: HYDROmorphone 0.5 MG/0.5 ML Syringe IVPUSH ONE ×2 (07:25→09:13)
[2022-12-01 08:00] LABS: BASOPHILS PERCENT AUTO 0.2 % (0.0-1.0); EOSINOPHILS ABSOLUTE AUTO 0.1 K/mm3 (0.0-0.4); EOSINOPHILS PERCENT AUTO 0.5 % (0.0-6.0); HEMATOCRIT 32.6 % (37.0-47.0); HEMOGLOBIN 11.1 gm/dl (12.0-16.0); IMMATURE GRAN ABSOLUTE AUTO 0.06 K/mm3 (0.00-0.05); IMMATURE GRAN PERCENT AUTO 0.5 % (0.0-0.4); LYMPHOCYTES ABSOLUTE AUTO 0.7 K/mm3 (1.0-4.8); LYMPHOCYTES PERCENT AUTO 5.4 % (24.0-44.0); MEAN CORPUSCULAR HEMOGLOBIN 29.9 pg (28.0-32.0); MEAN CORPUSCULAR VOLUME 87.9 fl (83.0-99.0); MEAN PLATELET VOLUME 8.4 fl (9.4-12.3); MONOCYTES PERCENT AUTO 7.6 % (0.0-8.0); NEUTROPHILS ABSOLUTE AUTO 11.1 K/mm3 (1.8-7.7); NEUTROPHILS PERCENT AUTO 85.8 % (41.0-71.0); PLATELET COUNT,PLT 316 K/mm3 (150-400); RED BLOOD CELL COUNT 3.71 M/mm3 (4.10-5.30); WHITE BLOOD CELL COUNT,WBC 12.88 K/mm3 (3.9-11.3)
[2022-12-01 08:34] LABS: A/G RATIO 0.7 (1-2); ALBUMIN 2.6 g/dl (3.4-5.0); ANION GAP 13.7 (5-15); BILIRUBIN TOTAL 0.5 mg/dL (0.2-1.0); BUN/CREATININE RATIO 18.8 (14-18); CALCIUM 8.5 mg/dL (8.5-10.1); CREATININE 0.8 mg/dL (0.55-1.02); EST CRCL DRUG DOSING (CG) 36.26 mL/min; POTASSIUM,K 3.7 mEq/L (3.5-5.1); PROTEIN TOTAL,TP 6.6 g/dl (6.4-8.2)
[2022-12-01 08:59] LABS: C-REACTIVE PROTEIN 14.1 mg/dL (<1.0)
[2022-12-01] MEDS ORDERED: Ketorolac 15 MG/ML SDV IVPUSH ONE (09:14)
[2022-12-01] MEDS ORDERED: Sodium Chloride 0.9% 500 ML IV ONE (09:20)
[2022-12-01] MEDS ORDERED: Acetaminophen/HYDROcodone 325-5 MG Tab PO ONE (10:24)
[2022-12-01 15:36] VITALS: BP 121/86; PULSE 81
[2022-12-01 19:41] LABS: RHEUMATOID FACTOR 27 IU/mL (0-14)
== END 2022-12-01 11:45 | disposition home or self-care (01) ==
LOC: JD.ED 07:06
DX: M25.50 Pain in unspecified joint (principal); M79.10 Myalgia, unspecified site; E78.00 Pure hypercholesterolemia, unspecified; I10 Essential (primary) hypertension; E03.9 Hypothyroidism, unspecified; Z79.899 Other long term (current) drug therapy
CPT/HCPCS: 36415; 80053; 85025; 85652; 86140; 86431; 96361; 96374; 96375; 96376; 99284; A9270; J1170; J1885; J2920; J3490; J7030